=== PATIENT | female | born 1970 | race Asian ===

== ENCOUNTER → 2017-05-29 | Outpatient (CLI) | payer MEDICARE, BC ==
[~2017-05-29] VITALS: Ht 160 cm; Wt 49.9 kg
[~2017-05-29] MED LIST: AMLO10TA2 PO; CALC300T5 PO; CALC667C PO; CALC667C6 PO; CINA30TA2 PO; CINA90TA PO; CLON0.3T PO; CONTRAST GIVEN MC PRN; FURO80TA72 PO; HEPARIN for IV BOLUS 10,000 UNIT/10 ML VIAL. IV ONE; HEPARIN for IV BOLUS 10,000 UNIT/10 ML VIAL. ONE; HYDR-971 PO; IODIXANOL 320 MG/ML 100 ML VIAL. IART ONE; IODIXANOL 320 MG/ML 100 ML VIAL. ONE; LIDOCAINE 1% / SOD BICARB 8.4% 20 ML VIAL. IJ ONE; LIDOCAINE 1%/EPI 1:100,000 20 ML VIAL. ONE; LISI40TA PO; METO50TA6 PO; MIDAZOLAM HCL/PF 2 MG/2 ML VIAL. IV ONE; MIDAZOLAM HCL/PF 2 MG/2 ML VIAL. ONE; SEVE800T9 PO; VIT1TABL57 PO; fentaNYL PF VIAL 100 MCG/2 ML VIAL IV ONE; fentaNYL PF VIAL 100 MCG/2 ML VIAL ONE
[2017-05-29 09:01] LABS: BASO # 0.1 x10^3/uL (0.0-0.2); BASO % 2 % (0-3); EOS % 4 % (0-3); HEMATOCRIT 32.6 % (36.0-47.0); HEMOGLOBIN 10.8 g/dL (12.0-15.5); LYMPH # 0.7 x10^3/uL (1.0-4.8); LYMPH % 22 % (24-48); MEAN CORPUSCULAR HEMOGLOBIN 31 pg (25-35); MEAN CORPUSCULAR HGB CONC 33 g/dL (31-37); MEAN CORPUSCULAR VOLUME 95 fL (79-100); MONO % 10 % (0-9); NEUT % 62 % (31-73); PLATELET COUNT 179 x10^3/uL (140-400); RED BLOOD COUNT 3.42 x10^6/uL (3.50-5.40); RED CELL DISTRIBUTION WIDTH 13.7 % (11.5-14.5); WHITE BLOOD COUNT 2.9 x10^3/uL (4.0-11.0)
[2017-05-29 09:02] LABS: CALCIUM 10.1 mg/dL (8.5-10.1); GFR 3.4; POTASSIUM 3.4 mmol/L (3.5-5.1)
[2017-05-29 09:03] VITALS: BP 110/72
[2017-05-29 09:10] LABS: INR 1.1 (0.8-1.1); PROTHROMBIN TIME PATIENT 13.2 SEC (11.7-14.0)
[2017-05-29 11:05] VITALS: BP 96/65
[2017-05-29 11:17] VITALS: BP 114/75
[2017-05-29 11:33] VITALS: BP 103/72
[2017-05-29 11:48] VITALS: BP 106/69
--- NOTE | 2017-05-30 09:18 | RAD ---
Left upper extremity fistulogram 05/29/2017 Indication: Prolonged bleeding Discussion: The risks and benefits of the procedure were discussed the patient. Informed consent was obtained. The left upper extremity was prepped and draped using maximum sterile barrier technique. A Timeout procedure was performed. 1% lidocaine without epinephrine was administered for local anesthesia. Micropuncture technique was used to access the left upper extremity fistula dyspnea on the arterial anastomosis. Fistulogram was were obtained demonstrating a patent arterial anastomosis and patent proximal fistula. Recurrent significant in-stent stenosis is noted throughout the stent in the distal left cephalic vein. This is treated with a 10 mm high pressure balloon which significantly improved morphology and flow.. Recurrent significant stenosis at the junction of the SVC and right atrium was seen.. This was treated with balloon dilatation using a 14 mm balloon which improved morphology and flow through the lesion. Access sheath was removed over a pursestring suture and hemostasis was achieved. No immediate complications. Fluoroscopy time:: 13.9 min Dose area product: 326 Gycm2 The procedures performed under conscious sedation including continuous cardiopulmonary monitoring via dedicated sedation nurse. Sedation time 45 minutes Impression: Recurrent in-stent stenosis involving the proximal cephalic vein stent, and recurrent stenosis at the junction of the SVC and right atrium, both successfully treated with balloon angioplasty
== END | disposition home or self-care (01) ==
LOC: INTRAD 08:32
PROVIDERS: ATTEND Internal Medicine Nephrology
DX: T82.858A Stenosis of other vascular prosthetic devices, implants and grafts, initial encounter (principal); I72.8 Aneurysm of other specified arteries; I12.9 Hypertensive chronic kidney disease with stage 1 through stage 4 chronic kidney disease, or unspecified chronic kidney disease; N18.6 End stage renal disease; F32.9 Major depressive disorder, single episode, unspecified; Z99.2 Dependence on renal dialysis
CPT/HCPCS: 36415; 36902; 36907; 76937; 80048; 85025; 85610; A4215; C1713; C1758; C1769; C1892; C1894; J1644; J2250; J3010; 99152; 99153

== ENCOUNTER 2020-02-04 17:24 | Inpatient (IN) | payer MEDICARE, BC ==
[~2020-02-04] VITALS: Ht 157.5 cm; Wt 45.9 kg
[~2020-02-04 17:24] MED LIST changes: -AMLO10TA2 PO; +AMLO10TA8 PO; -CONTRAST GIVEN MC PRN; -HEPARIN for IV BOLUS 10,000 UNIT/10 ML VIAL. IV ONE; -HEPARIN for IV BOLUS 10,000 UNIT/10 ML VIAL. ONE; +HYDR-3164 PO; -HYDR-971 PO; -IODIXANOL 320 MG/ML 100 ML VIAL. IART ONE; -IODIXANOL 320 MG/ML 100 ML VIAL. ONE; -LIDOCAINE 1% / SOD BICARB 8.4% 20 ML VIAL. IJ ONE; -LIDOCAINE 1%/EPI 1:100,000 20 ML VIAL. ONE; +LISI-130 PO; -LISI40TA PO; -MIDAZOLAM HCL/PF 2 MG/2 ML VIAL. IV ONE; -MIDAZOLAM HCL/PF 2 MG/2 ML VIAL. ONE; -fentaNYL PF VIAL 100 MCG/2 ML VIAL IV ONE; -fentaNYL PF VIAL 100 MCG/2 ML VIAL ONE
[2020-02-04 17:48] LABS: BASO # 0.1 x10^3/uL (0.0-0.2); BASO % 1 % (0-3); EOS % 0 % (0-3); LYMPH # 0.8 x10^3/uL (1.0-4.8); LYMPH % 10 % (24-48); MEAN CORPUSCULAR HEMOGLOBIN 34 pg (25-35); MEAN CORPUSCULAR HGB CONC 34 g/dL (31-37); MEAN CORPUSCULAR VOLUME 100 fL (79-100); MONO # 0.4 x10^3/uL (0.0-1.1); MONO % 4 % (0-9); NEUT # 7.5 x10^3/uL (1.8-7.7); NEUT % 85 % (31-73); PLATELET COUNT 186 x10^3/uL (140-400); RED BLOOD COUNT 1.21 x10^6/uL (3.50-5.40); WHITE BLOOD COUNT 8.8 x10^3/uL (4.0-11.0)
[2020-02-04 17:54] LABS: HEMOGLOBIN 4.1 g/dL (12.0-15.5)
[2020-02-04 17:55] LABS: CALCIUM 8.2 mg/dL (8.5-10.1); CREATININE 11.4 mg/dL (0.6-1.0); GFR 3.6; POTASSIUM 4.6 mmol/L (3.5-5.1)
[2020-02-04 17:58] LABS: PROTHROMBIN TIME PATIENT 13.9 SEC (11.7-14.0)
[2020-02-04 18:03] LABS: ALBUMIN 2.8 g/dL (3.4-5.0); ALBUMIN/GLOBULIN RATIO 1.1 (1.0-1.7); TOTAL BILIRUBIN 0.3 mg/dL (0.2-1.0); TOTAL PROTEIN 5.4 g/dL (6.4-8.2)
[2020-02-04 18:09] LABS: PREG TEST PT QUAL NEGATIVE (NEG)
--- NOTE | 2020-02-04 18:20 | PHYS DOC ---
Past Medical History Past Medical History: Hypertension, Renal Failure Past Surgical History: Cholecystectomy Additional Past Surgical Histo: LUMBAR SURGERY Smoking Status: Never Smoker Alcohol Use: None Drug Use: None General Adult EDM: Chief Complaint: VAGINAL BLEEDING HPI: HPI: Patient is a 49-year-old female with past medical history of end-stage renal disease who presents to the emergency room with syncope and vaginal bleeding. Her states that she has been having vaginal bleeding for the last 8 days. He states it is been very heavy. She has been going through 20 pads a day. They have had something similar for years ago but it resolved on its own and she did not has much bleeding. He states that she has been listless all day and had a syncopal episode. She has been very weak and is unable to stand on her own. She did go to dialysis yesterday. She is unable to provide any history. Review of Systems: Review of Systems: Unable to obtain due to altered mental status Heart Score: Risk Factors: Risk Factors: DM, Current or recent (<one month) smoker, HTN, HLP, family history of CAD, obesity. Risk Scores: Score 0 - 3: 2.5% MACE over next 6 weeks - Discharge Home Score 4 - 6: 20.3% MACE over next 6 weeks - Admit for Clinical Observation Score 7 - 10: 72.7% MACE over next 6 weeks - Early Invasive Strategies Allergies: Allergies: Allergies Coded Allergies Type Severity Reaction Last Updated Verified aspirin Allergy Intermediate 11/14/15 Yes Physical Exam: PE: General: Lethargic, pale, toxic appearing HEENT: Atraumatic, EOMI, PERRL, airway patent, moist oral mucosa, pale mucosa Neck: Supple, trachea midline Respiratory: CTA bilaterally, normal effort, no wheezing/crackles CV: Tachycardic, no murmur, cap refill <2 GI: Soft, nondistended, nontender, no masses MSK: No obvious deformities Skin: Warm, dry, intact Neuro: withdrawals from pain, nonverbal Current Patient Data: Labs: Laboratory Tests Test 02/04/20 17:38 White Blood Count 8.8 x10^3/uL (4.0-11.0) Red Blood Count 1.21 x10^6/uL (3.50-5.40) L Hemoglobin 4.1 g/dL (12.0-15.5) *L Hematocrit 12.0 % (36.0-47.0) *L Mean Corpuscular Volume 100 fL (79-100) Mean Corpuscular Hemoglobin 34 pg (25-35) Mean Corpuscular Hemoglobin Concent 34 g/dL (31-37) Red Cell Distribution Width 14.0 % (11.5-14.5) Platelet Count 186 x10^3/uL (140-400) Neutrophils (%) (Auto) 85 % (31-73) H Lymphocytes (%) (Auto) 10 % (24-48) L Monocytes (%) (Auto) 4 % (0-9) Eosinophils (%) (Auto) 0 % (0-3) Basophils (%) (Auto) 1 % (0-3) Neutrophils # (Auto) 7.5 x10^3/uL (1.8-7.7) Lymphocytes # (Auto) 0.8 x10^3/uL (1.0-4.8) L Monocytes # (Auto) 0.4 x10^3/uL (0.0-1.1) Eosinophils # (Auto) 0.0 x10^3/uL (0.0-0.7) Basophils # (Auto) 0.1 x10^3/uL (0.0-0.2) Prothrombin Time 13.9 SEC (11.7-14.0) Prothrombin Time INR 1.1 (0.8-1.1) Activated Partial Thromboplast Time 26 SEC (24-38) Fibrinogen 214 mg/dL (200-440) Sodium Level 143 mmol/L (136-145) Potassium Level 4.6 mmol/L (3.5-5.1) Chloride Level 104 mmol/L (98-107) Carbon Dioxide Level 31 mmol/L (21-32) Anion Gap 8 (6-14) Blood Urea Nitrogen 37 mg/dL (7-20) H Creatinine 11.4 mg/dL (0.6-1.0) H Estimated GFR (Cockcroft-Gault) 3.6 BUN/Creatinine Ratio 3 (6-20) L Glucose Level 145 mg/dL (70-99) H Calcium Level 8.2 mg/dL (8.5-10.1) L Total Bilirubin 0.3 mg/dL (0.2-1.0) Aspartate Amino Transferase (AST) 14 U/L (15-37) L Alanine Aminotransferase (ALT) 19 U/L (14-59) Alkaline Phosphatase 47 U/L (46-116) Total Protein 5.4 g/dL (6.4-8.2) L Albumin 2.8 g/dL (3.4-5.0) L Albumin/Globulin Ratio 1.1 (1.0-1.7) Serum Test, Qualitative Negative (NEG) Laboratory Tests 02/04/20 17:38 Laboratory Tests 02/04/20 17:38 Vital Signs: Vital Signs Date Time Temp Pulse Resp B/P (MAP) Pulse Ox O2 Delivery O2 Flow Rate FiO2 02/04/20 17:44 95 02/04/20 17:35 98.6 16 76/50 (59) Room Air 98.6 EKG: EKG: [] Radiology/Procedures: Radiology/Procedures: [] Course & Med Decision Making: Course & Med Decision Making Patient is a 49-year-old female who presents the emergency room with likely hemorrhagic shock. Patient is tachycardic, hypotensive, and has had a large amount of vaginal bleeding. Type and cross was ordered with 2 units of blood. She was started on fluids with improvement in blood pressure. Ultrasound will n eed to be done for vaginal bleeding. Patient was discussed with oncoming physician who will assume care. Anthony Disclaimer: Draggiovanna Disclaimer: This electronic medical record was generated, in whole or in part, using a voice recognition dictation system. Critical Care Time Critical Care: Authorized and Performed by: Leif Padron MD Total critical care time: approximately 40 minutes Due to a high probability of clinically significant, life threatening deterioration, the patient required my highest level of preparedness to intervene emergently and I personally spent this critical care time directly and personally managing the patient. This critical care time included obtaining a history; examining the patient; pulse oximetry; ventilator management if necessary; ordering and review of studies; arranging urgent treatment with development of a management plan; evaluation of patient's response to treatment; frequent reassessment; discussion with patient/family; and, discussions with other providers. This critical care time was performed to assess and manage the high probability of imminent, life-threatening deterioration that could result in multi-organ failure. It was exclusive of separately billable procedures and treating other patients and teaching time. Please see MDM section and the rest of the note for further information on patient assessment and treatment. Departure Departure Impression: Primary Impression: Hemorrhagic shock Additional Impressions: Anemia Vaginal bleeding Disposition: ADMITTED INPATIENT Condition: CRITICAL Referrals: PIERCE SOLIS MD (PCP) Justicifation of Admission Dx: Justifications for Admission: Justification of Admission Dx: Yes LEIF PADRON MD Feb 04, 2020 18:20
--- NOTE | 2020-02-04 19:09 | RAD ---
INDICATION: Reason: severe vaginal bleeding; dizziness; fatigue. / Spl. Instructions: / History: COMPARISON: June 2014 TECHNIQUE: Grayscale and color ultrasound images uterus and adnexa. Transabdominal and transvaginal images obtained. Transvaginal images were needed to better visualize structures that were limited on transabdominal imaging. FINDINGS: Uterus: 61 x 56 x 36 mm. Endometrial Stripe: 12 mm. Left ovary is obscured. Right ovary is 31 x 16 x 14 mm. 15 mm hypoechoic lesion right ovary. Cystic structure near cervical region could be from nabothian cysts. IMPRESSION: * There is some fluid and debris within the endometrial canal. * Small hypoechoic lesion in the right ovary. Some possible causes would include hemorrhagic cyst or endometrioma. Electronically signed by: Efrain Coburn MD (02/04/2020 7:06 PM) [id number]
[2020-02-04 20:10] VITALS: BP 111/55
[2020-02-04] MEDS: ESTROGENS, CONJUGATED 0.625 MG TABLET PO SCH (21:50)
[2020-02-04] MEDS ORDERED: IV NORMAL SALINE 1000ML BAG 1,000 ML IV ONE (22:00)
[2020-02-04] MEDS: METOPROLOL TART IMMED RELEASE 50 MG TABLET. PO SCH (22:00)
[2020-02-04] MEDS ORDERED: MEDR150V3 IM (23:21)
[2020-02-04] MEDS ORDERED: ACET500T68 PO (23:22)
[2020-02-04] MEDS ORDERED: diphenhydrAMINE ORAL ELIXIR 12.5 MG/5 ML ML PO PRN (23:45)
[2020-02-04] MEDS ORDERED: ACETAMINOPHEN 325 MG TABLET. PO PRN (23:45)
[2020-02-04] MEDS ORDERED: diphenhydrAMINE HCL 25 MG CAPSULE PO PRN (23:45)
[2020-02-04 23:56] VITALS: BP 88/57
[2020-02-05] VITALS (29 sets, daily range): BP systolic 65–117; BP diastolic 45–67
[2020-02-05] MEDS ORDERED: medroxyPROGESTERone IM 150 MG/ML VIAL. IM ONE
--- NOTE | 2020-02-05 01:56 | NUR ---
Upon arrival to floor it was found that patient's bedding was saturated with blood and slightly febrile and hypotensive. This RN notified OBGYN of findings. Patient swabbed for rapid COVID and also COVID to be sent out. RN administers depo-provera IM and additional unit of blood started, OBGYN also orders an additional unit of blood which was ordered by RN, totalling 3 units of blood. Orders received from primary physician to transfer patient to ICU, for closer monitoring. Patient remained hypotensive throughout short admission on unit. This RN notifies caregiver of patient transfer as well.
--- NOTE | 2020-02-05 02:19 | NUR ---
Patient transferred to room 108 via bed accompanied by CVC RN and WATER VALVE MECHANIC at 0120. Patient not very interactive and does not speak cameroonian, but patient is very cooperative. Patient attached to ICU monitors--SR/ST on monitor, BP low in 70s, and doing fine on RA. Patient has patent IVs x2 but is SL at this time. Lab to notify shortly when blood is ready to be picked up. Patient able to turn herself in bed and is not in any pain/distress at this time. Patient's brief removed upon transfer and is saturated with blood--CVC RN stated that the brief had been on the patient for between an hour and an hour and a half. RN received unit of blood from lab and started on patient. BP has gone up since starting the unit of blood--temperatures staying steady at 98.5-98.6. Will continue to monitor, call for orders if necessary, and recheck hgb post transfusion.
[2020-02-05] MEDS: IV NORMAL SALINE 1000ML BAG 1,000 ML IV SCH ×2 (03:22→11:15)
--- NOTE | 2020-02-05 03:26 | NUR ---
Reassessments of IVF not completed because patient still receiving fluids and stop times will be documented in IV spreadsheet.
[2020-02-05] MEDS ORDERED: IV NORMAL SALINE 1000ML BAG 1,000 ML IV ONE (03:30)
--- NOTE | 2020-02-05 05:48 | NUR ---
Since patient had been on unit, she had barely bled at all. After checking again at 0540 the pad underneath her was saturated and there were 2 clots present, each about the size of a baseball. Patient cleaned up, states she is not in pain. BP has improved at this time, fourth unit of blood just finished, and repeat hgb to be checked shortly.
[2020-02-05 07:33] LABS: BASO % 1 % (0-3); EOS # 0.1 x10^3/uL (0.0-0.7); EOS % 1 % (0-3); HEMATOCRIT 21.3 % (36.0-47.0); HEMOGLOBIN 7.3 g/dL (12.0-15.5); LYMPH # 0.9 x10^3/uL (1.0-4.8); LYMPH % 18 % (24-48); MEAN CORPUSCULAR HEMOGLOBIN 32 pg (25-35); MEAN CORPUSCULAR HGB CONC 35 g/dL (31-37); MONO # 0.4 x10^3/uL (0.0-1.1); MONO % 9 % (0-9); NEUT # 3.6 x10^3/uL (1.8-7.7); NEUT % 71 % (31-73); PLATELET COUNT 98 x10^3/uL (140-400); RED BLOOD COUNT 2.31 x10^6/uL (3.50-5.40); RED CELL DISTRIBUTION WIDTH 15.1 % (11.5-14.5); WHITE BLOOD COUNT 5.1 x10^3/uL (4.0-11.0)
[2020-02-05 07:38] LABS: MEAN CORPUSCULAR VOLUME 92 fL (79-100)
[2020-02-05] MEDS: CALCIUM ACETATE 667 MG CAPSULE PO SCH ×3 (08:00→17:00)
[2020-02-05] MEDS: METOPROLOL TART IMMED RELEASE 50 MG TABLET. PO SCH ×2 (08:02→21:00)
[2020-02-05] MEDS: FOLIC/VIT B COMP W-C (RENAL) TABLET. PO SCH (08:32)
[2020-02-05] MEDS: ESTROGENS, CONJUGATED 0.625 MG TABLET PO SCH (08:32)
[2020-02-05] MEDS: CINACALCET HCL 30 MG TABLET PO SCH (08:32)
--- NOTE | 2020-02-05 08:41 | CONS ---
DATE OF CONSULTATION: CHIEF COMPLAINT AND HISTORY OF PRESENT ILLNESS: The patient is a 49 years old lady who is a 3, para 3, came into the Emergency Room because of excessive vaginal bleeding. She is admitted through the ER because of her hemoglobin was 4 and bleeding heavy vaginal. She is a patient of Dr. Centeno and seen in consultation, mainly because of the vaginal bleeding. She has had 3 normal deliveries according to the and she has had previous lumbar surgery. Also, cholecystectomy and is on dialysis for kidney failure. ALLERGIES: SHE IS ALLERGIC TO ASPIRIN. PHYSICAL EXAMINATION: VITAL SIGNS: Vital signs at this time seems to be normal. The initial rapid COVID-19 test is negative at this time. ABDOMEN: Feels soft. The patient has lost weight, emaciated, fatigued and weakness and having lot of vaginal bleeding. PELVIC: Reveals external genitalia is normal. Moderate vaginal bleeding noted at this time. On bimanual exam, cervical os is closed. Uterus feels normal size, no adnexal masses are felt at this time. EXTREMITIES: No edema of feet. IMPRESSION Persistent uterine bleeding, secondary anemia, history of kidney failure and getting dialysis frequently. RECOMMENDATION: Since her hemoglobin is 4, she needs at least 3 units of packed cells to bring up her hemoglobin, which she has received and this morning, her hemoglobin is 7.1. We would recommend diagnostic D and C, waiting for medical fitness for the surgery. Thank you for giving me the opportunity to participate in the care and management of this patient. RADHA MCKEON MD DR: SOCRATES/minda JOB#: [id number] / [id number]
[2020-02-05 09:00] LABS: CALCIUM 7.1 mg/dL (8.5-10.1); CREATININE 10.9 mg/dL (0.6-1.0); GFR 3.8; POTASSIUM 4.6 mmol/L (3.5-5.1)
[2020-02-05] MEDS ORDERED: LIDOCAINE 2% PF 5 ML VIAL. ONE (11:59)
[2020-02-05] MEDS ORDERED: PROPOFOL 10 MG/ML (20ML) VIAL. IV ONE (11:59)
[2020-02-05] MEDS ORDERED: fentaNYL PF VIAL 100 MCG/2 ML VIAL ONE (11:59)
[2020-02-05] MEDS ORDERED: PHENYLEPHRINE 10 MG/ML VIAL. ONE (12:00)
[2020-02-05] MEDS ORDERED: OXYTOCIN 10 UNIT/ML VIAL. ONE (12:08)
[2020-02-05] MEDS ORDERED: CARBOPROST TROMETHAMINE 250 MCG/ML AMPUL IM ONE (12:09)
[2020-02-05] MEDS ORDERED: METHYLERGONOVINE MALEATE 0.2 MG/ML VIAL. IM ONE (12:09)
[2020-02-05] MEDS ORDERED: miSOPROStol 200 MCG TABLET ONE (12:16)
--- NOTE | 2020-02-05 12:19 | PDOC1 ---
History and Physical Date of Service: DOS: DATE: 02/05/20 TIME: 12:16 Chief Complaint: Problems: (1) Dysmenorrhea (2) Menorrhalgia (3) Hemorrhagic shock (4) Anemia (5) Vaginal bleeding (6) Anemia, posthemorrhagic, acute (7) Hypotension Chief Complain: Excessive vaginal bleeding History of Present Illness: HPI: This is a pleasant middle-aged female who presented to the ER last night with excessive vaginal bleeding Her hemoglobin had dropped down to 4 She was admitted and transfused several units of packed red blood cells Her hemoglobin today is up to 7.3 She is now being examined in the ICU where she is awaiting to go to surgery to have a DNC Past Medical/Surgical History: PMH/PSH: Past Medical History: ESRD on dialysis hypertension, Renal Failure Past Surgical History: Cholecystectomy Additional Past Surgical Histo: LUMBAR SURGERY Allergies: Allergies: Coded Allergies: aspirin (Verified Allergy, Intermediate, 11/14/15) Family History: Family History: Hypertension Social History: Social History: She does not drink smoke or take drugs Current Medications: Current Medications Current Medications Calcium Acetate (Phoslo) 2,001 mg TIDWMEALS PO ; Start 02/05/20 at 08:00 Cinacalcet (Sensipar) 60 mg DAILY PO ; Start 02/05/20 at 09:00 Metoprolol Tartrate (Lopressor) 50 mg BID PO ; Start 02/04/20 at 22:00 Vitamin B Complex/ Vitamin C (Cris-Keisha) 1 tab DAILY PO ; Start 02/05/20 at 09:00 Estrogens Conjugated (Premarin) 0.625 mg DAILY PO Last administered on 02/04/20at 21:50; Start 02/04/20 at 22:00 Sodium Chloride 1,000 ml @ 100 mls/hr 1X ONCE IV ; Start 02/04/20 at 22:00; Stop 02/05/20 at 07:59; Status DC Medroxyprogesterone Acetate (Depo-Provera Im) 150 mg 1X ONCE IM Last administered on 02/05/20at 00:00; Start 02/05/20 at 00:00; Stop 02/05/20 at 00:01; Status DC Acetaminophen (Tylenol) 650 mg 1X PRN PRN PO PRE-TRANSFUSION; Start 02/04/20 at 23:45 Diphenhydramine HCl (Benadryl Oral Elixir) 12.5 mg 1X PRN PRN PO PRE- TRANSFUSION; Start 02/04/20 at 23:45 Diphenhydramine HCl (Benadryl) 25 mg PRN 1X PRN PO PRE-TRANSFUSION; Start 02/04/20 at 23:45 Sodium Chloride 1,000 ml @ 125 mls/hr Q8H IV Last administered on 02/05/20at 11:15; Start 02/05/20 at 03:15 Sodium Chloride 1,000 ml @ 1,000 mls/hr 1X ONCE IV Last administered on 02/05/20at 03:21; Start 02/05/20 at 03:30; Stop 02/05/20 at 04:29; Status DC Propofol (Diprivan) 200 mg STK-MED ONCE IV ; Start 02/05/20 at 11:59; Stop 02/05/20 at 12:00; Status DC Lidocaine HCl (Lidocaine Pf 2% Vial) 5 ml STK-MED ONCE .ROUTE ; Start 02/05/20 at 11:59; Stop 02/05/20 at 12:00; Status DC Fentanyl Citrate (Fentanyl 2ml Vial) 100 mcg STK-MED ONCE .ROUTE ; Start 02/05/20 at 11:59; Stop 02/05/20 at 12:00; Status DC Phenylephrine HCl (Hernando-Synephrine Inj) 10 mg STK-MED ONCE .ROUTE ; Start 02/05/20 at 12:00; Stop 02/05/20 at 12:00; Status DC Oxytocin (Pitocin) 10 unit STK-MED ONCE .ROUTE ; Start 02/05/20 at 12:08; Stop 02/05/20 at 12:09; Status DC Carboprost Tromethamine (Hemabate) 250 mcg STK-MED ONCE IM ; Start 02/05/20 at 12:09; Stop 02/05/20 at 12:09; Status DC Methylergonovine Maleate (Methergine) 0.2 mg STK-MED ONCE IM ; Start 02/05/20 at 12:09; Stop 02/05/20 at 12:09; Status DC Active Scripts Active Reported Acetaminophen 500 Mg Tablet 1 Tab PO PRN Q6HRS PRN 15 Days Medroxyprogesterone Acetate 150 Mg/1 Ml Vial 1 Ml IM 1X [place] 5-325 Tablet (Acetaminophen/Hydrocodone Bitart) 1 Each Tablet 1-2 Tab PO Q6-8HRS PRN LAST DOSE GIVEN: DATE: TIME: NEXT DOSE DUE: DATE: TIME: Phoslo (Calcium Acetate) 667 Mg Capsule 2,101 Mg PO TIDWMEALS Sensipar (Cinacalcet Hcl) 30 Mg Tablet 60 Mg PO DAILY Nephro-Keisha Rx Tablet (Vit B Cmplx 3/Fa/Vit C/Biotin) 1 Each Tablet 1 Each PO DAILY Metoprolol Tartrate 50 Mg Tablet 50 Mg PO BID Lisinopril 40 Mg Tablet 40 Mg PO BID Lasix (Furosemide) 80 Mg Tablet 80 Mg PO BID ROS: Review of Systems Review of System REVIEW OF SYSTEMS: GENERAL: Denies weakness SKIN: No bruising, hair changes or rashes. EYES: No blurred, double or loss of vision. NOSE AND THROAT: No history of nosebleeds, hoarseness or sore throat. HEART: No history of palpitations, chest pain or shortness of breath on exertion. LUNGS: Denies cough, hemoptysis, wheezing or shortness of breath. GASTROINTESTINAL: Denies changes in appetite, nausea, vomiting, diarrhea or constipation. GENITOURINARY: Complains of excessive vaginal bleeding NEUROLOGIC: Denies history of numbness, tingling, or tremor. PSYCHIATRIC: No history of panic, anxiety or depression. ENDOCRINE: No history of heat or cold intolerance, polyuria or polydipsia. EXTREMITIES: Denies joint pain, pain on walking or stiffness. Physical Exam: Vital Signs: Vital Signs Date Time Temp Pulse Resp B/P (MAP) Pulse Ox O2 Delivery O2 Flow Rate FiO2 02/05/20 11:00 69 16 94/55 (68) 100 Room Air 02/05/20 08:00 98.2 98.2 Physcial Exam: GEN: No apparent distress. Alert and oriented HEENT: Normal cephalic, atraumatic, external auditory canals are patent EYES: Extraocular muscles are intact, pupil are equally round and reactive to light and accommodation MUSCULOSKELETAL: Well developed , well nourished, good range of motion ENDOCRINE: No thyromegaly was palpated LYMPHATICS: No cervical chain or axillary nodes were noted HEMATOPOIETIC: No bruising NECK: Supple, no JVD, no thyromegaly was noted LUNGS: Clear to auscultation in all lung lui without rhonchi or wheezing HEART: RRR, S!, S2 present. Peripheral pulses intact, no obvious murmurs noted ABDOMEN: Soft, nontender. Positive bowel sounds, no organomegaly, normal bowel sounds EXTREMITIES: Without clubbing, cyanosis, or edema. Pedal pulses intact. Negative Homans sign NEUROLOGIC: Normal speech and tone. A&O x 3, moves all extremities, no obvious focal deficits PSYCHIATRIC: Normal affect, normal mood. Stable SKIN: No ulcerations or rashes, good skin turgor, no jaundice VASCULAR: Good capillary refill, neurovascular bundle appears to be intact Labs: Labs: Laboratory Tests Test 02/04/20 17:38 02/05/20 00:05 02/05/20 07:10 White Blood Count 8.8 x10^3/uL (4.0-11.0) 5.1 x10^3/uL (4.0-11.0) Red Blood Count 1.21 x10^6/uL (3.50-5.40) 2.31 x10^6/uL (3.50-5.40) Hemoglobin 4.1 g/dL (12.0-15.5) 7.3 g/dL (12.0-15.5) Hematocrit 12.0 % (36.0-47.0) 21.3 % (36.0-47.0) Mean Corpuscular Volume 100 fL (79-100) 92 fL (79-100) Mean Corpuscular Hemoglobin 34 pg (25-35) 32 pg (25-35) Mean Corpuscular Hemoglobin Concent 34 g/dL (31-37) 35 g/dL (31-37) Red Cell Distribution Width 14.0 % (11.5-14.5) 15.1 % (11.5-14.5) Platelet Count 186 x10^3/uL (140-400) 98 x10^3/uL (140-400) Neutrophils (%) (Auto) 85 % (31-73) 71 % (31-73) Lymphocytes (%) (Auto) 10 % (24-48) 18 % (24-48) Monocytes (%) (Auto) 4 % (0-9) 9 % (0-9) Eosinophils (%) (Auto) 0 % (0-3) 1 % (0-3) Basophils (%) (Auto) 1 % (0-3) 1 % (0-3) Neutrophils # (Auto) 7.5 x10^3/uL (1.8-7.7) 3.6 x10^3/uL (1.8-7.7) Lymphocytes # (Auto) 0.8 x10^3/uL (1.0-4.8) 0.9 x10^3/uL (1.0-4.8) Monocytes # (Auto) 0.4 x10^3/uL (0.0-1.1) 0.4 x10^3/uL (0.0-1.1) Eosinophils # (Auto) 0.0 x10^3/uL (0.0-0.7) 0.1 x10^3/uL (0.0-0.7) Basophils # (Auto) 0.1 x10^3/uL (0.0-0.2) 0.0 x10^3/uL (0.0-0.2) Prothrombin Time 13.9 SEC (11.7-14.0) Prothromb Time International Ratio 1.1 (0.8-1.1) Activated Partial Thromboplast Time 26 SEC (24-38) Fibrinogen 214 mg/dL (200-440) Sodium Level 143 mmol/L (136-145) 144 mmol/L (136-145) Potassium Level 4.6 mmol/L (3.5-5.1) 4.6 mmol/L (3.5-5.1) Chloride Level 104 mmol/L (98-107) 111 mmol/L (98-107) Carbon Dioxide Level 31 mmol/L (21-32) 25 mmol/L (21-32) Anion Gap 8 (6-14) 8 (6-14) Blood Urea Nitrogen 37 mg/dL (7-20) 36 mg/dL (7-20) Creatinine 11.4 mg/dL (0.6-1.0) 10.9 mg/dL (0.6-1.0) Estimated GFR (Cockcroft-Gault) 3.6 3.8 BUN/Creatinine Ratio 3 (6-20) Glucose Level 145 mg/dL (70-99) 100 mg/dL (70-99) Calcium Level 8.2 mg/dL (8.5-10.1) 7.1 mg/dL (8.5-10.1) Total Bilirubin 0.3 mg/dL (0.2-1.0) Aspartate Amino Transf (AST/SGOT) 14 U/L (15-37) Alanine Aminotransferase (ALT/SGPT) 19 U/L (14-59) Alkaline Phosphatase 47 U/L (46-116) Total Protein 5.4 g/dL (6.4-8.2) Albumin 2.8 g/dL (3.4-5.0) Albumin/Globulin Ratio 1.1 (1.0-1.7) Serum Test, Qualitative Negative (NEG) SARS-CoV-2 Antigen (Rapid) Negative (NEGATIVE) Laboratory Tests Test 02/04/20 17:38 02/05/20 00:05 02/05/20 07:10 White Blood Count 8.8 x10^3/uL (4.0-11.0) 5.1 x10^3/uL (4.0-11.0) Red Blood Count 1.21 x10^6/uL (3.50-5.40) 2.31 x10^6/uL (3.50-5.40) Hemoglobin 4.1 g/dL (12.0-15.5) 7.3 g/dL (12.0-15.5) Hematocrit 12.0 % (36.0-47.0) 21.3 % (36.0-47.0) Mean Corpuscular Volume 100 fL (79-100) 92 fL (79-100) Mean Corpuscular Hemoglobin 34 pg (25-35) 32 pg (25-35) Mean Corpuscular Hemoglobin Concent 34 g/dL (31-37) 35 g/dL (31-37) Red Cell Distribution Width 14.0 % (11.5-14.5) 15.1 % (11.5-14.5) Platelet Count 186 x10^3/uL (140-400) 98 x10^3/uL (140-400) Neutrophils (%) (Auto) 85 % (31-73) 71 % (31-73) Lymphocytes (%) (Auto) 10 % (24-48) 18 % (24-48) Monocytes (%) (Auto) 4 % (0-9) 9 % (0-9) Eosinophils (%) (Auto) 0 % (0-3) 1 % (0-3) Basophils (%) (Auto) 1 % (0-3) 1 % (0-3) Neutrophils # (Auto) 7.5 x10^3/uL (1.8-7.7) 3.6 x10^3/uL (1.8-7.7) Lymphocytes # (Auto) 0.8 x10^3/uL (1.0-4.8) 0.9 x10^3/uL (1.0-4.8) Monocytes # (Auto) 0.4 x10^3/uL (0.0-1.1) 0.4 x10^3/uL (0.0-1.1) Eosinophils # (Auto) 0.0 x10^3/uL (0.0-0.7) 0.1 x10^3/uL (0.0-0.7) Basophils # (Auto) 0.1 x10^3/uL (0.0-0.2) 0.0 x10^3/uL (0.0-0.2) Prothrombin Time 13.9 SEC (11.7-14.0) Prothromb Time International Ratio 1.1 (0.8-1.1) Activated Partial Thromboplast Time 26 SEC (24-38) Fibrinogen 214 mg/dL (200-440) Sodium Level 143 mmol/L (136-145) 144 mmol/L (136-145) Potassium Level 4.6 mmol/L (3.5-5.1) 4.6 mmol/L (3.5-5.1) Chloride Level 104 mmol/L (98-107) 111 mmol/L (98-107) Carbon Dioxide Level 31 mmol/L (21-32) 25 mmol/L (21-32) Anion Gap 8 (6-14) 8 (6-14) Blood Urea Nitrogen 37 mg/dL (7-20) 36 mg/dL (7-20) Creatinine 11.4 mg/dL (0.6-1.0) 10.9 mg/dL (0.6-1.0) Estimated GFR (Cockcroft-Gault) 3.6 3.8 BUN/Creatinine Ratio 3 (6-20) Glucose Level 145 mg/dL (70-99) 100 mg/dL (70-99) Calcium Level 8.2 mg/dL (8.5-10.1) 7.1 mg/dL (8.5-10.1) Total Bilirubin 0.3 mg/dL (0.2-1.0) Aspartate Amino Transf (AST/SGOT) 14 U/L (15-37) Alanine Aminotransferase (ALT/SGPT) 19 U/L (14-59) Alkaline Phosphatase 47 U/L (46-116) Total Protein 5.4 g/dL (6.4-8.2) Albumin 2.8 g/dL (3.4-5.0) Albumin/Globulin Ratio 1.1 (1.0-1.7) Serum Test, Qualitative Negative (NEG) SARS-CoV-2 Antigen (Rapid) Negative (NEGATIVE) Assessment/Plan Assessment/Plan Dysmenorrhea with dysfunctional uterine bleeding Plan Trend hemoglobin Transfuse whenever she is below 7 I called [facility] they are going to take her for a DNC ICU monitoring Home meds DVT prophylaxis Full code Justicifation of Admission Dx: Justifications for Admission: Justification of Admission Dx: N/A KELTON GOINS III DO Feb 05, 2020 12:19
[2020-02-05] MEDS ORDERED: IV RINGERS,LACTATED 1000ML 1,000 ML IV SCH (12:24)
[2020-02-05 12:29] LABS: BASO % 1 % (0-3); EOS # 0.1 x10^3/uL (0.0-0.7); EOS % 1 % (0-3); HEMOGLOBIN 7.1 g/dL (12.0-15.5); LYMPH # 1.5 x10^3/uL (1.0-4.8); LYMPH % 24 % (24-48); MEAN CORPUSCULAR HEMOGLOBIN 32 pg (25-35); MEAN CORPUSCULAR HGB CONC 34 g/dL (31-37); MEAN CORPUSCULAR VOLUME 94 fL (79-100); MONO # 0.4 x10^3/uL (0.0-1.1); MONO % 7 % (0-9); NEUT # 4.1 x10^3/uL (1.8-7.7); NEUT % 67 % (31-73); PLATELET COUNT 103 x10^3/uL (140-400); RED BLOOD COUNT 2.22 x10^6/uL (3.50-5.40); RED CELL DISTRIBUTION WIDTH 15.4 % (11.5-14.5); WHITE BLOOD COUNT 6.1 x10^3/uL (4.0-11.0)
[2020-02-05 12:30] LABS: HEMATOCRIT 20.8 % (36.0-47.0)
[2020-02-05] MEDS ORDERED: ONDANSETRON PF 4 MG/2 ML VIAL. IV PRN (12:30)
[2020-02-05] MEDS ORDERED: PROCHLORPERAZINE 10 MG/2 ML VIAL. IV PRN (12:30)
[2020-02-05] MEDS ORDERED: MORPHINE SULFATE 2 MG/ML VIAL. IV PRN (12:30)
[2020-02-05] MEDS ORDERED: fentaNYL PF VIAL 100 MCG/2 ML VIAL IV PRN (12:30)
[2020-02-05] MEDS ORDERED: HYDROmorphone 2 MG/ML VIAL IV PRN (12:30)
[2020-02-05] MEDS ORDERED: ceFAZolin SODIUM IV Push 1 GM VIAL. IVP ONE (12:42)
[2020-02-05] MEDS ORDERED: DEXAMETHASONE SOD PHOS 4 MG/ML VIAL ONE (12:47)
[2020-02-05] MEDS ORDERED: ONDANSETRON PF 4 MG/2 ML VIAL. ONE (12:47)
[2020-02-05] MEDS ORDERED: SEVOFLURANE 31 TO 60 MINUTES. IH ONE (12:51)
--- NOTE | 2020-02-05 13:04 | PDOC ---
GENERAL General: Patient has Persistent vaginal bleeding. Scheduled for Diagnostic D and C. VITAL SIGNS Vital Signs/I&O: Vital Signs Date Time Temp Pulse Resp B/P (MAP) Pulse Ox O2 Delivery O2 Flow Rate FiO2 02/05/20 12:00 98.2 79 18 91/57 (68) 100 Room Air 98.2 I & O 02/04/20 02/04/20 02/05/20 15:00 23:00 07:00 Intake Total 30 ml 2437 ml Balance 30 ml 2437 ml ALLERGIES Allergies: Allergies Coded Allergies Type Severity Reaction Last Updated Verified aspirin Allergy Intermediate 11/14/15 Yes MEDS Medications: Current Medications Medications (Trade) Dose Ordered Sig/Betsy Route PRN Reason Start Time Stop Time Status Last Admin Dose Admin Estrogens Conjugated (Premarin) 0.625 mg DAILY PO 02/04/20 22:00 02/04/20 21:50 Medroxyprogesterone Acetate (Depo-Provera Im) 150 mg 1X ONCE IM 02/05/20 00:00 02/05/20 00:01 DC 02/05/20 00:00 Sodium Chloride 1,000 ml @ 125 mls/hr Q8H IV 02/05/20 03:15 02/05/20 11:15 Sodium Chloride 1,000 ml @ 1,000 mls/hr 1X ONCE IV 02/05/20 03:30 02/05/20 04:29 DC 02/05/20 03:21 LAB Lab: Laboratory Tests Test 02/04/20 17:38 02/05/20 00:05 02/05/20 07:10 02/05/20 12:10 White Blood Count 8.8 x10^3/uL (4.0-11.0) 5.1 x10^3/uL (4.0-11.0) 6.1 x10^3/uL (4.0-11.0) Red Blood Count 1.21 x10^6/uL (3.50-5.40) L 2.31 x10^6/uL (3.50-5.40) L 2.22 x10^6/uL (3.50-5.40) L Hemoglobin 4.1 g/dL (12.0-15.5) *L 7.3 g/dL (12.0-15.5) #L 7.1 g/dL (12.0-15.5) L Hematocrit 12.0 % (36.0-47.0) *L 21.3 % (36.0-47.0) L 20.8 % (36.0-47.0) *L Mean Corpuscular Volume 100 fL (79-100) 92 fL (79-100) # 94 fL (79-100) Mean Corpuscular Hemoglobin 34 pg (25-35) 32 pg (25-35) 32 pg (25-35) Mean Corpuscular Hemoglobin Concent 34 g/dL (31-37) 35 g/dL (31-37) 34 g/dL (31-37) Red Cell Distribution Width 14.0 % (11.5-14.5) 15.1 % (11.5-14.5) H 15.4 % (11.5-14.5) H Platelet Count 186 x10^3/uL (140-400) 98 x10^3/uL (140-400) L 103 x10^3/uL (140-400) L Neutrophils (%) (Auto) 85 % (31-73) H 71 % (31-73) 67 % (31-73) Lymphocytes (%) (Auto) 10 % (24-48) L 18 % (24-48) L 24 % (24-48) Monocytes (%) (Auto) 4 % (0-9) 9 % (0-9) 7 % (0-9) Eosinophils (%) (Auto) 0 % (0-3) 1 % (0-3) 1 % (0-3) Basophils (%) (Auto) 1 % (0-3) 1 % (0-3) 1 % (0-3) Neutrophils # (Auto) 7.5 x10^3/uL (1.8-7.7) 3.6 x10^3/uL (1.8-7.7) 4.1 x10^3/uL (1.8-7.7) Lymphocytes # (Auto) 0.8 x10^3/uL (1.0-4.8) L 0.9 x10^3/uL (1.0-4.8) L 1.5 x10^3/uL (1.0-4.8) Monocytes # (Auto) 0.4 x10^3/uL (0.0-1.1) 0.4 x10^3/uL (0.0-1.1) 0.4 x10^3/uL (0.0-1.1) Eosinophils # (Auto) 0.0 x10^3/uL (0.0-0.7) 0.1 x10^3/uL (0.0-0.7) 0.1 x10^3/uL (0.0-0.7) Basophils # (Auto) 0.1 x10^3/uL (0.0-0.2) 0.0 x10^3/uL (0.0-0.2) 0.0 x10^3/uL (0.0-0.2) Prothrombin Time 13.9 SEC (11.7-14.0) Prothrombin Time INR 1.1 (0.8-1.1) Activated Partial Thromboplast Time 26 SEC (24-38) Fibrinogen 214 mg/dL (200-440) Sodium Level 143 mmol/L (136-145) 144 mmol/L (136-145) Potassium Level 4.6 mmol/L (3.5-5.1) 4.6 mmol/L (3.5-5.1) Chloride Level 104 mmol/L (98-107) 111 mmol/L (98-107) H Carbon Dioxide Level 31 mmol/L (21-32) 25 mmol/L (21-32) Anion Gap 8 (6-14) 8 (6-14) Blood Urea Nitrogen 37 mg/dL (7-20) H 36 mg/dL (7-20) H Creatinine 11.4 mg/dL (0.6-1.0) H 10.9 mg/dL (0.6-1.0) H Estimated GFR (Cockcroft-Gault) 3.6 3.8 BUN/Creatinine Ratio 3 (6-20) L Glucose Level 145 mg/dL (70-99) H 100 mg/dL (70-99) H Calcium Level 8.2 mg/dL (8.5-10.1) L 7.1 mg/dL (8.5-10.1) L Total Bilirubin 0.3 mg/dL (0.2-1.0) Aspartate Amino Transferase (AST) 14 U/L (15-37) L Alanine Aminotransferase (ALT) 19 U/L (14-59) Alkaline Phosphatase 47 U/L (46-116) Total Protein 5.4 g/dL (6.4-8.2) L Albumin 2.8 g/dL (3.4-5.0) L Albumin/Globulin Ratio 1.1 (1.0-1.7) Serum Test, Qualitative Negative (NEG) SARS-CoV-2 Antigen (Rapid) Negative (NEGATIVE) Laboratory Tests 02/04/20 17:38 02/05/20 07:10 02/05/20 12:10 Laboratory Tests 02/04/20 17:38 02/05/20 07:10 ASSESSMENT & PLAN A&P Under GA Wally Grubbs done. EBL 100cc. Hb 7.1. Patient received 1G Ancef during the time of Wally Grubbs. Justicifation of Admission Dx: Justifications for Admission: Justification of Admission Dx: N/A RADHA MCKEON MD Feb 05, 2020 13:04
--- NOTE | 2020-02-05 13:56 | OP ---
DATE OF SURGERY: PREOPERATIVE DIAGNOSIS: Persistent dysfunctional uterine bleeding. POSTOPERATIVE DIAGNOSIS: Persistent dysfunctional uterine bleeding. OPERATION PERFORMED: Diagnostic dilation and curettage. DESCRIPTION OF PROCEDURE: The patient was taken to the operating room under general anesthesia. She was placed in the dorsal lithotomy position. Perineum was prepped and draped in the usual manner. Weighted speculum inserted in the posterior vaginal wall. Anterior lip of the cervix held with a tenaculum. Uterine sound is used to measure the length of the uterine cavity, which appears to be about 8 cm, and the cervix was dilated. First a medium-sized curette was used to curette the endometrial cavity. There were profuse curettings obtained and all this curettings were sent for pathological examination. All the blood clots were removed and she did receive 20 units of Pitocin during the time of the D and C and at the end of the curettage, a large 2-inch vaginal packing is inserted into the vagina just to prevent any bleeding and the patient was sent to the recovery room in good condition. She will go back to ICU for further observation at this time. Her hemoglobin has been 7.1 in OR. The patient tolerated the procedure well. No complications at this time. RADHA MCKEON MD DR: SOCRATES/minda JOB#: [id number] / [id number]
--- NOTE | 2020-02-05 14:29 | NUR ---
Nursing Note Pt returned to ICU bed 108 from OR at this time. PACU nurses recovering pt. Report received from JOSE MANUEL Chi at bedside. Pt does not have any obvious signs of vaginal bleeding at this time. VSS. Pitocin infusing through REJ. Pain medications administered along with heating pad to lower abdominal area. Will continue to monitor.
[2020-02-05] MEDS: fentaNYL PF VIAL 100 MCG/2 ML VIAL IV PRN ×2 (15:10→18:38)
[2020-02-05] MEDS ORDERED: fentaNYL PF VIAL 100 MCG/2 ML VIAL IVP PRN (16:00)
[2020-02-05 16:04] LABS: HEMOGLOBIN 7.4 g/dL (12.0-15.5); RED BLOOD COUNT 2.32 x10^6/uL (3.50-5.40); RED CELL DISTRIBUTION WIDTH 15.2 % (11.5-14.5); WHITE BLOOD COUNT 6.5 x10^3/uL (4.0-11.0)
[2020-02-05] MEDS ORDERED: ALBUMIN HUMAN 5% 250 ML IV ONE (19:00)
--- NOTE | 2020-02-05 19:39 | NUR ---
Report called to 3S RN and transferred to room 333
--- NOTE | 2020-02-05 21:05 | NUR ---
Assumed care patient laying in bed with eyes closed. No acute distress noted at this time. Used language line to communicate. Patient is alert and oriented. Responded and stated she had surgery today and her stomach is in pain. No other complaints voiced. Vital signs and assessment completed. Patient linens changed and shes been repositioned. IJ to the right neck intact and infusing NS@100. Blood pressure medication held per orders. B/P 107/56. 100% on room air. Will medicate patient for pain. Call garcia is in reach and will continue to monitor closely.
--- NOTE | 2020-02-05 21:55 | CONS ---
DATE OF CONSULTATION: REQUESTING PHYSICIAN: Hospitalist. REASON FOR CONSULTATION: End-stage renal disease. HISTORY OF PRESENT ILLNESS: A 49-year-old female with history of hypertension and end-stage renal disease, hemodialysis dependent on Friday, Friday, Friday schedule. The patient is currently admitted with menorrhagia. She has significant vaginal bleeding. Hemoglobin is as low as 4. She has received packed red blood cell transfusion. She now has returned from the operating room where she was taken for D and C. Full D and C was not pursued due to concern for malignant lesion. She has been packed and is back in the Intensive Care Unit. PAST MEDICAL HISTORY: Hypertension, end-stage renal disease, hemodialysis dependent, anemia of chronic kidney disease, secondary hyperparathyroidism, renal disease. PAST SURGICAL HISTORY: Cholecystectomy, lumbar surgery, vascular access placement. ALLERGIES: ASPIRIN. MEDICATIONS: Reviewed per medication list. FAMILY HISTORY: Noncontributory. SOCIAL HISTORY: The patient resides with assistance. REVIEW OF SYSTEMS: The patient is currently somnolent postoperatively and I will provide information. What is known is that she has had significant vaginal bleeding and did miss her most recent dialysis treatment. PHYSICAL EXAMINATION: GENERAL APPEARANCE: The patient is somnolent, still sedated from surgical intervention. HEENT: Oxygen facemask in place. Somewhat sallow complexion. NECK: No increased JVD. LUNGS: Clear. CARDIAC: Without S3 or rub. ABDOMEN: Soft, nontender, no bruits. EXTREMITIES: Without edema. NEUROPSYCHIATRIC: Sedated. LABORATORY DATA: Hemoglobin currently 7.1, hematocrit 20.8, white count 6.1, platelets are 103. Sodium 144, potassium 4.6, chloride 111, CO2 of 25, BUN 36, creatinine 10.9, calcium 7.1. IMPRESSION: 1. End-stage renal disease secondary to hypertensive nephrosclerosis, hemodialysis dependent, on Friday, Friday, and Friday. 2. Menorrhagia -- with operative findings concerning for malignancy. 3. Anemia of chronic kidney disease as well as ____ acute blood loss. RECOMMENDATIONS: 1. Blood products as needed. 2. Hemodynamic monitoring. 3. Ongoing dialysis. We will plan on dialysis on Friday as fluid and electrolyte balance does not necessitate emergent dialysis at this time. Certainly, can alter plans if it becomes necessary. We will follow closely. PIERCE GONZALEZ MD DR: Jose JOB#: [id number] / [id number]
[2020-02-06] VITALS (16 sets, daily range): BP systolic 88–108; BP diastolic 39–66
[2020-02-06] MEDS: IV NORMAL SALINE 1000ML BAG 1,000 ML IV SCH (01:00)
[2020-02-06 08:57] LABS: ALBUMIN 2.8 g/dL (3.4-5.0); ALBUMIN/GLOBULIN RATIO 1.6 (1.0-1.7); CALCIUM 7.9 mg/dL (8.5-10.1); CREATININE 11.4 mg/dL (0.6-1.0); GFR 3.6; TOTAL BILIRUBIN 0.6 mg/dL (0.2-1.0); TOTAL PROTEIN 4.5 g/dL (6.4-8.2)
[2020-02-06] MEDS: METOPROLOL TART IMMED RELEASE 50 MG TABLET. PO SCH ×2 (09:00→21:26)
[2020-02-06] MEDS ORDERED: oxyCODONE/APAP 5/325 1 TAB TABLET PO PRN (09:15)
[2020-02-06] MEDS: CALCIUM ACETATE 667 MG CAPSULE PO SCH ×3 (09:23→17:45)
[2020-02-06] MEDS: ESTROGENS, CONJUGATED 0.625 MG TABLET PO SCH (09:26)
[2020-02-06] MEDS: CINACALCET HCL 30 MG TABLET PO SCH (09:26)
[2020-02-06] MEDS: FOLIC/VIT B COMP W-C (RENAL) TABLET. PO SCH (09:27)
--- NOTE | 2020-02-06 10:14 | PDOC ---
GENERAL General: Patient looks much better Smiling today. No Problems. VITAL SIGNS Vital Signs/I&O: Vital Signs Date Time Temp Pulse Resp B/P (MAP) Pulse Ox O2 Delivery O2 Flow Rate FiO2 02/06/20 09:00 90 83/39 02/06/20 06:30 97.6 16 97 Room Air 97.6 02/05/20 21:30 10.0 I & O 02/05/20 02/05/20 02/06/20 15:00 23:00 07:00 Intake Total 1200 ml Output Total 150 ml 0 ml Balance 1050 ml 0 ml ALLERGIES Allergies: Allergies Coded Allergies Type Severity Reaction Last Updated Verified aspirin Allergy Intermediate 11/14/15 Yes MEDS Medications: Current Medications Medications (Trade) Dose Ordered Sig/Betsy Route PRN Reason Start Time Stop Time Status Last Admin Dose Admin Fentanyl Citrate (Fentanyl 2ml Vial) 50 mcg PRN Q5MIN PRN IV MODERATE TO SEVERE PAIN 02/05/20 12:30 02/05/20 19:38 DC 02/05/20 18:38 Morphine Sulfate (Morphine Sulfate) 1 mg PRN Q10MIN PRN IV SEVERE PAIN 7-10 02/05/20 12:30 02/05/20 19:38 DC 02/05/20 14:28 Fentanyl Citrate (Fentanyl 2ml Vial) 50 mcg PRN Q2HR PRN IVP PAIN 02/05/20 16:00 02/05/20 21:30 Albumin Human 250 ml @ 62.5 mls/hr 1X ONCE IV 02/05/20 19:00 02/05/20 22:59 DC 02/05/20 19:09 LAB Lab: Laboratory Tests Test 02/05/20 12:10 02/05/20 15:40 02/06/20 07:25 White Blood Count 6.1 x10^3/uL (4.0-11.0) 6.5 x10^3/uL (4.0-11.0) Red Blood Count 2.22 x10^6/uL (3.50-5.40) L 2.32 x10^6/uL (3.50-5.40) L Hemoglobin 7.1 g/dL (12.0-15.5) L 7.4 g/dL (12.0-15.5) L Hematocrit 20.8 % (36.0-47.0) *L 22.0 % (36.0-47.0) L Mean Corpuscular Volume 94 fL (79-100) 95 fL (79-100) Mean Corpuscular Hemoglobin 32 pg (25-35) 32 pg (25-35) Mean Corpuscular Hemoglobin Concent 34 g/dL (31-37) 34 g/dL (31-37) Red Cell Distribution Width 15.4 % (11.5-14.5) H 15.2 % (11.5-14.5) H Platelet Count 103 x10^3/uL (140-400) L 105 x10^3/uL (140-400) L Neutrophils (%) (Auto) 67 % (31-73) Lymphocytes (%) (Auto) 24 % (24-48) Monocytes (%) (Auto) 7 % (0-9) Eosinophils (%) (Auto) 1 % (0-3) Basophils (%) (Auto) 1 % (0-3) Neutrophils # (Auto) 4.1 x10^3/uL (1.8-7.7) Lymphocytes # (Auto) 1.5 x10^3/uL (1.0-4.8) Monocytes # (Auto) 0.4 x10^3/uL (0.0-1.1) Eosinophils # (Auto) 0.1 x10^3/uL (0.0-0.7) Basophils # (Auto) 0.0 x10^3/uL (0.0-0.2) Sodium Level 146 mmol/L (136-145) H Potassium Level 5.0 mmol/L (3.5-5.1) Chloride Level 110 mmol/L (98-107) H Carbon Dioxide Level 16 mmol/L (21-32) L Anion Gap 20 (6-14) H Blood Urea Nitrogen 45 mg/dL (7-20) H Creatinine 11.4 mg/dL (0.6-1.0) H Estimated GFR (Cockcroft-Gault) 3.6 BUN/Creatinine Ratio 4 (6-20) L Glucose Level 84 mg/dL (70-99) Calcium Level 7.9 mg/dL (8.5-10.1) L Total Bilirubin 0.6 mg/dL (0.2-1.0) Aspartate Amino Transferase (AST) 14 U/L (15-37) L Alanine Aminotransferase (ALT) 11 U/L (14-59) L Alkaline Phosphatase 36 U/L (46-116) L Total Protein 4.5 g/dL (6.4-8.2) L Albumin 2.8 g/dL (3.4-5.0) L Albumin/Globulin Ratio 1.6 (1.0-1.7) Laboratory Tests 02/05/20 12:10 02/05/20 15:40 Laboratory Tests 02/06/20 07:25 ASSESSMENT & PLAN A&P Vital signs stable. Vaginal Packing Removed. Slight vaginal bleeding noted. Waiting for Pathology report. Patient can go Home. Will see her in office in 2 weeks. Justicifation of Admission Dx: Justifications for Admission: Justification of Admission Dx: N/A RADHA MCKEON MD Feb 06, 2020 10:14
[2020-02-06 10:29] LABS: HEMATOCRIT 18.3 % (36.0-47.0); HEMOGLOBIN 6.1 g/dL (12.0-15.5)
[2020-02-06] MEDS ORDERED: IV NORMAL SALINE 500ML BAG 500 ML IV ONE (12:45)
--- NOTE | 2020-02-06 13:38 | PDOC ---
PROGRESS NOTES Date of Service: DATE: 02/06/20 TIME: 13:36 Chief Complaint Chief Complaint acute blood loss anemia shock from blood loss on admit Dysmenorrhea with dysfunctional uterine bleeding obese, BMI 42 ESRD Hmong, not khmer speaking History of Present Illness History of Present Illness admit was to ICU, out to womens floor today Trend hemoglobin still anemic again, eating well this AM Transfuse whenever she is below 7 REVENUE LIAISON packed and have removed, Dr Pierre to follow, Full code Vitals Vitals Vital Signs Date Time Temp Pulse Resp B/P (MAP) Pulse Ox O2 Delivery O2 Flow Rate FiO2 02/06/20 13:10 98.0 92 18 90/52 98.0 02/06/20 08:00 Room Air 02/06/20 06:30 97 02/05/20 21:30 10.0 Physical Exam Physical Exam calm and responsive, laughed some General: Alert, Cooperative, No acute distress Heart: Regular rate Abdomen: Soft Extremities: No clubbing Skin: No rashes Labs LABS Laboratory Tests Test 02/05/20 15:40 02/06/20 07:25 White Blood Count 6.5 x10^3/uL (4.0-11.0) Red Blood Count 2.32 x10^6/uL (3.50-5.40) Hemoglobin 7.4 g/dL (12.0-15.5) 6.1 g/dL (12.0-15.5) Hematocrit 22.0 % (36.0-47.0) 18.3 % (36.0-47.0) Mean Corpuscular Volume 95 fL (79-100) Mean Corpuscular Hemoglobin 32 pg (25-35) Mean Corpuscular Hemoglobin Concent 34 g/dL (31-37) Red Cell Distribution Width 15.2 % (11.5-14.5) Platelet Count 105 x10^3/uL (140-400) Sodium Level 146 mmol/L (136-145) Potassium Level 5.0 mmol/L (3.5-5.1) Chloride Level 110 mmol/L (98-107) Carbon Dioxide Level 16 mmol/L (21-32) Anion Gap 20 (6-14) Blood Urea Nitrogen 45 mg/dL (7-20) Creatinine 11.4 mg/dL (0.6-1.0) Estimated GFR (Cockcroft-Gault) 3.6 BUN/Creatinine Ratio 4 (6-20) Glucose Level 84 mg/dL (70-99) Calcium Level 7.9 mg/dL (8.5-10.1) Total Bilirubin 0.6 mg/dL (0.2-1.0) Aspartate Amino Transf (AST/SGOT) 14 U/L (15-37) Alanine Aminotransferase (ALT/SGPT) 11 U/L (14-59) Alkaline Phosphatase 36 U/L (46-116) Total Protein 4.5 g/dL (6.4-8.2) Albumin 2.8 g/dL (3.4-5.0) Albumin/Globulin Ratio 1.6 (1.0-1.7) Assessment and Plan Assessmemt and Plan Problems Medical Problems: (1) Anemia Status: Acute (2) Hemorrhagic shock Status: Acute (3) Vaginal bleeding Status: Acute Comment Review of Relevant I have reviewed the following items genoveva (where applicable) has been applied. Labs Laboratory Tests Test 02/04/20 17:38 02/05/20 00:05 02/05/20 07:10 02/05/20 12:10 White Blood Count 8.8 x10^3/uL (4.0-11.0) 5.1 x10^3/uL (4.0-11.0) 6.1 x10^3/uL (4.0-11.0) Red Blood Count 1.21 x10^6/uL (3.50-5.40) 2.31 x10^6/uL (3.50-5.40) 2.22 x10^6/uL (3.50-5.40) Hemoglobin 4.1 g/dL (12.0-15.5) 7.3 g/dL (12.0-15.5) 7.1 g/dL (12.0-15.5) Hematocrit 12.0 % (36.0-47.0) 21.3 % (36.0-47.0) 20.8 % (36.0-47.0) Mean Corpuscular Volume 100 fL (79-100) 92 fL (79-100) 94 fL (79-100) Mean Corpuscular Hemoglobin 34 pg (25-35) 32 pg (25-35) 32 pg (25-35) Mean Corpuscular Hemoglobin Concent 34 g/dL (31-37) 35 g/dL (31-37) 34 g/dL (31-37) Red Cell Distribution Width 14.0 % (11.5-14.5) 15.1 % (11.5-14.5) 15.4 % (11.5-14.5) Platelet Count 186 x10^3/uL (140-400) 98 x10^3/uL (140-400) 103 x10^3/uL (140-400) Neutrophils (%) (Auto) 85 % (31-73) 71 % (31-73) 67 % (31-73) Lymphocytes (%) (Auto) 10 % (24-48) 18 % (24-48) 24 % (24-48) Monocytes (%) (Auto) 4 % (0-9) 9 % (0-9) 7 % (0-9) Eosinophils (%) (Auto) 0 % (0-3) 1 % (0-3) 1 % (0-3) Basophils (%) (Auto) 1 % (0-3) 1 % (0-3) 1 % (0-3) Neutrophils # (Auto) 7.5 x10^3/uL (1.8-7.7) 3.6 x10^3/uL (1.8-7.7) 4.1 x10^3/uL (1.8-7.7) Lymphocytes # (Auto) 0.8 x10^3/uL (1.0-4.8) 0.9 x10^3/uL (1.0-4.8) 1.5 x10^3/uL (1.0-4.8) Monocytes # (Auto) 0.4 x10^3/uL (0.0-1.1) 0.4 x10^3/uL (0.0-1.1) 0.4 x10^3/uL (0.0-1.1) Eosinophils # (Auto) 0.0 x10^3/uL (0.0-0.7) 0.1 x10^3/uL (0.0-0.7) 0.1 x10^3/uL (0.0-0.7) Basophils # (Auto) 0.1 x10^3/uL (0.0-0.2) 0.0 x10^3/uL (0.0-0.2) 0.0 x10^3/uL (0.0-0.2) Prothrombin Time 13.9 SEC (11.7-14.0) Prothromb Time International Ratio 1.1 (0.8-1.1) Activated Partial Thromboplast Time 26 SEC (24-38) Fibrinogen 214 mg/dL (200-440) Sodium Level 143 mmol/L (136-145) 144 mmol/L (136-145) Potassium Level 4.6 mmol/L (3.5-5.1) 4.6 mmol/L (3.5-5.1) Chloride Level 104 mmol/L (98-107) 111 mmol/L (98-107) Carbon Dioxide Level 31 mmol/L (21-32) 25 mmol/L (21-32) Anion Gap 8 (6-14) 8 (6-14) Blood Urea Nitrogen 37 mg/dL (7-20) 36 mg/dL (7-20) Creatinine 11.4 mg/dL (0.6-1.0) 10.9 mg/dL (0.6-1.0) Estimated GFR (Cockcroft-Gault) 3.6 3.8 BUN/Creatinine Ratio 3 (6-20) Glucose Level 145 mg/dL (70-99) 100 mg/dL (70-99) Calcium Level 8.2 mg/dL (8.5-10.1) 7.1 mg/dL (8.5-10.1) Total Bilirubin 0.3 mg/dL (0.2-1.0) Aspartate Amino Transf (AST/SGOT) 14 U/L (15-37) Alanine Aminotransferase (ALT/SGPT) 19 U/L (14-59) Alkaline Phosphatase 47 U/L (46-116) Total Protein 5.4 g/dL (6.4-8.2) Albumin 2.8 g/dL (3.4-5.0) Albumin/Globulin Ratio 1.1 (1.0-1.7) Serum Test, Qualitative Negative (NEG) SARS-CoV-2 Antigen (Rapid) Negative (NEGATIVE) Test 02/05/20 15:40 02/06/20 07:25 White Blood Count 6.5 x10^3/uL (4.0-11.0) Red Blood Count 2.32 x10^6/uL (3.50-5.40) Hemoglobin 7.4 g/dL (12.0-15.5) 6.1 g/dL (12.0-15.5) Hematocrit 22.0 % (36.0-47.0) 18.3 % (36.0-47.0) Mean Corpuscular Volume 95 fL (79-100) Mean Corpuscular Hemoglobin 32 pg (25-35) Mean Corpuscular Hemoglobin Concent 34 g/dL (31-37) Red Cell Distribution Width 15.2 % (11.5-14.5) Platelet Count 105 x10^3/uL (140-400) Sodium Level 146 mmol/L (136-145) Potassium Level 5.0 mmol/L (3.5-5.1) Chloride Level 110 mmol/L (98-107) Carbon Dioxide Level 16 mmol/L (21-32) Anion Gap 20 (6-14) Blood Urea Nitrogen 45 mg/dL (7-20) Creatinine 11.4 mg/dL (0.6-1.0) Estimated GFR (Cockcroft-Gault) 3.6 BUN/Creatinine Ratio 4 (6-20) Glucose Level 84 mg/dL (70-99) Calcium Level 7.9 mg/dL (8.5-10.1) Total Bilirubin 0.6 mg/dL (0.2-1.0) Aspartate Amino Transf (AST/SGOT) 14 U/L (15-37) Alanine Aminotransferase (ALT/SGPT) 11 U/L (14-59) Alkaline Phosphatase 36 U/L (46-116) Total Protein 4.5 g/dL (6.4-8.2) Albumin 2.8 g/dL (3.4-5.0) Albumin/Globulin Ratio 1.6 (1.0-1.7) Laboratory Tests Test 02/05/20 15:40 02/06/20 07:25 White Blood Count 6.5 x10^3/uL (4.0-11.0) Red Blood Count 2.32 x10^6/uL (3.50-5.40) Hemoglobin 7.4 g/dL (12.0-15.5) 6.1 g/dL (12.0-15.5) Hematocrit 22.0 % (36.0-47.0) 18.3 % (36.0-47.0) Mean Corpuscular Volume 95 fL (79-100) Mean Corpuscular Hemoglobin 32 pg (25-35) Mean Corpuscular Hemoglobin Concent 34 g/dL (31-37) Red Cell Distribution Width 15.2 % (11.5-14.5) Platelet Count 105 x10^3/uL (140-400) Sodium Level 146 mmol/L (136-145) Potassium Level 5.0 mmol/L (3.5-5.1) Chloride Level 110 mmol/L (98-107) Carbon Dioxide Level 16 mmol/L (21-32) Anion Gap 20 (6-14) Blood Urea Nitrogen 45 mg/dL (7-20) Creatinine 11.4 mg/dL (0.6-1.0) Estimated GFR (Cockcroft-Gault) 3.6 BUN/Creatinine Ratio 4 (6-20) Glucose Level 84 mg/dL (70-99) Calcium Level 7.9 mg/dL (8.5-10.1) Total Bilirubin 0.6 mg/dL (0.2-1.0) Aspartate Amino Transf (AST/SGOT) 14 U/L (15-37) Alanine Aminotransferase (ALT/SGPT) 11 U/L (14-59) Alkaline Phosphatase 36 U/L (46-116) Total Protein 4.5 g/dL (6.4-8.2) Albumin 2.8 g/dL (3.4-5.0) Albumin/Globulin Ratio 1.6 (1.0-1.7) Medications Current Medications Calcium Acetate (Phoslo) 2,001 mg TIDWMEALS PO Last administered on 02/06/20at 13:23; Start 02/05/20 at 08:00 Cinacalcet (Sensipar) 60 mg DAILY PO Last administered on 02/06/20at 09:26; St art 02/05/20 at 09:00 Metoprolol Tartrate (Lopressor) 50 mg BID PO ; Start 02/04/20 at 22:00 Vitamin B Complex/ Vitamin C (Cris-Keisha) 1 tab DAILY PO Last administered on 02/06/20at 09:27; Start 02/05/20 at 09:00 Estrogens Conjugated (Premarin) 0.625 mg DAILY PO Last administered on 02/06/20at 09:26; Start 02/04/20 at 22:00 Sodium Chloride 1,000 ml @ 100 mls/hr 1X ONCE IV ; Start 02/04/20 at 22:00; Stop 02/05/20 at 07:59; Status DC Medroxyprogesterone Acetate (Depo-Provera Im) 150 mg 1X ONCE IM Last admi nistered on 02/05/20at 00:00; Start 02/05/20 at 00:00; Stop 02/05/20 at 00:01; Status DC Acetaminophen (Tylenol) 650 mg 1X PRN PRN PO PRE-TRANSFUSION; Start 02/04/20 at 23:45 Diphenhydramine HCl (Benadryl Oral Elixir) 12.5 mg 1X PRN PRN PO PRE-TRANSFUSIO N; Start 02/04/20 at 23:45 Diphenhydramine HCl (Benadryl) 25 mg PRN 1X PRN PO PRE-TRANSFUSION; Start 02/04/20 at 23:45 Sodium Chloride 1,000 ml @ 125 mls/hr Q8H IV Last administered on 02/06/20at 01:00; Start 02/05/20 at 03:15; Stop 02/06/20 at 09:04; Status DC Sodium Chloride 1,000 ml @ 1,000 mls/hr 1X ONCE IV Last administered on 02/05/20at 03:21; Start 02/05/20 at 03:30; Stop 02/05/20 at 04:29; Status DC Propofol (Diprivan) 200 mg STK-MED ONCE IV ; Start 02/05/20 at 11:59; Stop 02/05/20 at 12:00; Status DC Lidocaine HCl (Lidocaine Pf 2% Vial) 5 ml STK-MED ONCE .ROUTE ; Start 02/05/20 at 11:59; Stop 02/05/20 at 12:00; Status DC Fentanyl Citrate (Fentanyl 2ml Vial) 100 mcg STK-MED ONCE .ROUTE ; Start 02/05/20 at 11:59; Stop 02/05/20 at 12:00; Status DC Phenylephrine HCl (Hernando-Synephrine Inj) 10 mg STK-MED ONCE .ROUTE ; Start 02/05/20 at 12:00; Stop 02/05/20 at 12:00; Status DC Oxytocin (Pitocin) 10 unit STK-MED ONCE .ROUTE ; Start 02/05/20 at 12:08; Stop 02/05/20 at 12:09; Status DC Carboprost Tromethamine (Hemabate) 250 mcg STK-MED ONCE IM ; Start 02/05/20 at 12:09; Stop 02/05/20 at 12:09; Status DC Methylergonovine Maleate (Methergine) 0.2 mg STK-MED ONCE IM ; Start 02/05/20 at 12:09; Stop 02/05/20 at 12:09; Status DC Misoprostol (Cytotec 200mcg Tab) 200 mcg STK-MED ONCE .ROUTE ; Start 02/05/20 at 12:16; Stop 02/05/20 at 12:16; Status DC Ondansetron HCl (Zofran) 4 mg PRN Q6HRS PRN IV NAUSEA/VOMITING; Start 02/05/20 at 12:30; Stop 02/05/20 at 19:38; Status DC Fentanyl Citrate (Fentanyl 2ml Vial) 25 mcg PRN Q5MIN PRN IV MILD PAIN 1-3; Start 02/05/20 at 12:30; Stop 02/05/20 at 19:38; Status DC Fentanyl Citrate (Fentanyl 2ml Vial) 50 mcg PRN Q5MIN PRN IV MODERATE TO SEVERE PAIN Last administered on 02/05/20at 18:38; Start 02/05/20 at 12:30; Stop 02/05/20 at 19:38; Status DC Morphine Sulfate (Morphine Sulfate) 1 mg PRN Q10MIN PRN IV SEVERE PAIN 7-10 Last administered on 02/05/20at 14:28; Start 02/05/20 at 12:30; Stop 02/05/20 at 19:38; Status DC Ringer's Solution 1,000 ml @ 30 mls/hr Q24H IV ; Start 02/05/20 at 12:24; Stop 02/05/20 at 19:38; Status DC Hydromorphone HCl (Dilaudid) 0.5 mg PRN Q10MIN PRN IV SEV PAIN, Second choice; Start 02/05/20 at 12:30; Stop 02/05/20 at 19:38; Status DC Prochlorperazine Edisylate (Compazine) 5 mg PACU PRN PRN IV NAUSEA, MRX1; Start 02/05/20 at 12:30; Stop 02/05/20 at 19:38; Status DC Cefazolin Sodium (Ancef) 1 gm STK-MED ONCE IVP ; Start 02/05/20 at 12:42; Stop 02/05/20 at 12:42; Status DC Ondansetron HCl (Zofran) 4 mg STK-MED ONCE .ROUTE ; Start 02/05/20 at 12:47; Stop 02/05/20 at 12:48; Status DC Dexamethasone Sodium Phosphate (Decadron) 4 mg STK-MED ONCE .ROUTE ; Start 02/05/20 at 12:47; Stop 02/05/20 at 12:48; Status DC Sevoflurane (Ultane) 30 ml STK-MED ONCE IH ; Start 02/05/20 at 12:51; Stop 02/05/20 at 12:51; Status DC Fentanyl Citrate (Fentanyl 2ml Vial) 50 mcg PRN Q2HR PRN IVP PAIN Last administered on 02/05/20at 21:30; Start 02/05/20 at 16:00 Albumin Human 250 ml @ 62.5 mls/hr 1X ONCE IV Last administered on 02/05/20at 19:09; Start 02/05/20 at 19:00; Stop 02/05/20 at 22:59; Status DC Oxycodone/ Acetaminophen (Percocet 5/325) 1 tab PRN Q4HRS PRN PO PAIN; Start 02/06/20 at 09:15 Sodium Chloride 500 ml @ 500 mls/hr 1X ONCE IV ; Start 02/06/20 at 12:45; Stop 02/06/20 at 13:44 Active Scripts Active Reported Acetaminophen 500 Mg Tablet 1 Tab PO PRN Q6HRS PRN 15 Days Medroxyprogesterone Acetate 150 Mg/1 Ml Vial 1 Ml IM 1X Prewitt 5-325 Tablet (Acetaminophen/Hydrocodone Bitart) 1 Each Tablet 1-2 Tab PO Q6-8HRS PRN LAST DOSE GIVEN: DATE: TIME: NEXT DOSE DUE: DATE: TIME: Phoslo (Calcium Acetate) 667 Mg Capsule 2,101 Mg PO TIDWMEALS Sensipar (Cinacalcet Hcl) 30 Mg Tablet 60 Mg PO DAILY Nephro-Keisha Rx Tablet (Vit B Cmplx 3/Fa/Vit C/Biotin) 1 Each Tablet 1 Each PO DAILY Metoprolol Tartrate 50 Mg Tablet 50 Mg PO BID Lisinopril 40 Mg Tablet 40 Mg PO BID Lasix (Furosemide) 80 Mg Tablet 80 Mg PO BID Vitals/I & O Vital Sign - Last 24 Hours 02/05/20 02/05/20 02/05/20 02/05/20 13:50 13:53 14:28 15:09 Temp 97.3 97.3 Pulse 63 Resp 18 B/P (MAP) 90/50 Pulse Ox 97 100 O2 Delivery Room Air Room Air Room Air Room Air 02/05/20 02/05/20 02/05/20 02/05/20 15:10 16:00 16:01 18:38 Temp 97.3 97.3 Pulse 66 Resp 16 B/P (MAP) 84/49 (61) Pulse Ox 100 100 100 O2 Delivery Room Air Room Air Room Air Room Air 02/05/20 02/05/20 02/05/20 02/05/20 20:38 21:00 21:30 21:39 Temp 98.6 98.6 Pulse 66 67 Resp 18 B/P (MAP) 99/52 (68) 107/56 Pulse Ox 98 98 O2 Delivery Room Air Room Air Room Air O2 Flow Rate 10.0 02/06/20 02/06/20 02/06/20 02/06/20 00:00 01:15 06:30 08:00 Temp 98.9 97.6 98.9 97.6 Pulse 67 67 Resp 16 18 16 B/P (MAP) 100/48 (65) 92/47 (62) Pulse Ox 100 100 97 O2 Delivery Room Air Room Air Room Air Room Air 02/06/20 02/06/20 02/06/20 09:00 12:51 13:10 Temp 99.9 98.0 99.9 98.0 Pulse 90 89 92 Resp 20 18 B/P (MAP) 83/39 96/50 90/52 Intake and Output 02/05/20 02/05/20 02/06/20 15:00 23:00 07:00 Intake Total 1200 ml Output Total 150 ml 0 ml Balance 1050 ml 0 ml Justicifation of Admission Dx: Justifications for Admission: Justification of Admission Dx: N/A KALPANA CHAMPION MD Feb 06, 2020 13:38
[2020-02-07 01:15] VITALS: BP 106/68
[2020-02-07 05:37] LABS: BASO % 1 % (0-3); EOS # 0.1 x10^3/uL (0.0-0.7); EOS % 2 % (0-3); HEMATOCRIT 21.9 % (36.0-47.0); HEMOGLOBIN 7.4 g/dL (12.0-15.5); LYMPH # 0.8 x10^3/uL (1.0-4.8); LYMPH % 14 % (24-48); MEAN CORPUSCULAR HEMOGLOBIN 32 pg (25-35); MEAN CORPUSCULAR HGB CONC 34 g/dL (31-37); MEAN CORPUSCULAR VOLUME 93 fL (79-100); MONO # 0.4 x10^3/uL (0.0-1.1); MONO % 7 % (0-9); NEUT % 76 % (31-73); PLATELET COUNT 83 x10^3/uL (140-400); RED BLOOD COUNT 2.35 x10^6/uL (3.50-5.40); RED CELL DISTRIBUTION WIDTH 15.8 % (11.5-14.5); WHITE BLOOD COUNT 5.3 x10^3/uL (4.0-11.0)
[2020-02-07 05:58] LABS: ALBUMIN 2.3 g/dL (3.4-5.0); ALBUMIN/GLOBULIN RATIO 1.4 (1.0-1.7); CREATININE 12.7 mg/dL (0.6-1.0); GFR 3.2; POTASSIUM 5.1 mmol/L (3.5-5.1); TOTAL BILIRUBIN 0.3 mg/dL (0.2-1.0)
[2020-02-07 06:25] VITALS: BP 93/58
[2020-02-07] MEDS ORDERED: IV NORMAL SALINE 1000ML BAG 1,000 ML IV PRN ×2 (07:46)
[2020-02-07] MEDS ORDERED: DIALYSIS PATIENT. MC PRN (08:00)
[2020-02-07] MEDS: CALCIUM ACETATE 667 MG CAPSULE PO SCH ×3 (08:16→20:27)
[2020-02-07] MEDS: FOLIC/VIT B COMP W-C (RENAL) TABLET. PO SCH (08:21)
[2020-02-07] MEDS: ESTROGENS, CONJUGATED 0.625 MG TABLET PO SCH (08:21)
[2020-02-07] MEDS: CINACALCET HCL 30 MG TABLET PO SCH (08:22)
[2020-02-07] MEDS: METOPROLOL TART IMMED RELEASE 50 MG TABLET. PO SCH ×2 (09:00→20:38)
[2020-02-07 09:22] VITALS: BP 95/63
--- NOTE | 2020-02-07 12:11 | PDOC ---
GENERAL General: Patient still here for Dialysis. VITAL SIGNS Vital Signs/I&O: Vital Signs Date Time Temp Pulse Resp B/P (MAP) Pulse Ox O2 Delivery O2 Flow Rate FiO2 02/07/20 09:22 97.7 66 18 95/63 (74) 100 97.7 02/07/20 06:25 Room Air I & O 02/06/20 02/06/20 02/07/20 15:00 23:00 07:00 Intake Total 780 ml 70 ml 50 ml Balance 780 ml 70 ml 50 ml ALLERGIES Allergies: Allergies Coded Allergies Type Severity Reaction Last Updated Verified aspirin Allergy Intermediate 11/14/15 Yes MEDS Medications: Current Medications Medications (Trade) Dose Ordered Sig/Betsy Route PRN Reason Start Time Stop Time Status Last Admin Dose Admin Vitamin B Complex/ Vitamin C (Cris-Keisha) 1 tab DAILY PO 02/07/20 09:00 02/07/20 08:21 LAB Lab: Laboratory Tests Test 02/07/20 05:00 White Blood Count 5.3 x10^3/uL (4.0-11.0) Red Blood Count 2.35 x10^6/uL (3.50-5.40) L Hemoglobin 7.4 g/dL (12.0-15.5) L Hematocrit 21.9 % (36.0-47.0) L Mean Corpuscular Volume 93 fL (79-100) Mean Corpuscular Hemoglobin 32 pg (25-35) Mean Corpuscular Hemoglobin Concent 34 g/dL (31-37) Red Cell Distribution Width 15.8 % (11.5-14.5) H Platelet Count 83 x10^3/uL (140-400) L Neutrophils (%) (Auto) 76 % (31-73) H Lymphocytes (%) (Auto) 14 % (24-48) L Monocytes (%) (Auto) 7 % (0-9) Eosinophils (%) (Auto) 2 % (0-3) Basophils (%) (Auto) 1 % (0-3) Neutrophils # (Auto) 4.0 x10^3/uL (1.8-7.7) Lymphocytes # (Auto) 0.8 x10^3/uL (1.0-4.8) L Monocytes # (Auto) 0.4 x10^3/uL (0.0-1.1) Eosinophils # (Auto) 0.1 x10^3/uL (0.0-0.7) Basophils # (Auto) 0.0 x10^3/uL (0.0-0.2) Sodium Level 145 mmol/L (136-145) Potassium Level 5.1 mmol/L (3.5-5.1) Chloride Level 112 mmol/L (98-107) H Carbon Dioxide Level 18 mmol/L (21-32) L Anion Gap 15 (6-14) H Blood Urea Nitrogen 54 mg/dL (7-20) H Creatinine 12.7 mg/dL (0.6-1.0) H Estimated GFR (Cockcroft-Gault) 3.2 BUN/Creatinine Ratio 4 (6-20) L Glucose Level 91 mg/dL (70-99) Calcium Level 7.0 mg/dL (8.5-10.1) L Total Bilirubin 0.3 mg/dL (0.2-1.0) Aspartate Amino Transferase (AST) 14 U/L (15-37) L Alanine Aminotransferase (ALT) 8 U/L (14-59) L Alkaline Phosphatase 48 U/L (46-116) Total Protein 4.0 g/dL (6.4-8.2) L Albumin 2.3 g/dL (3.4-5.0) L Albumin/Globulin Ratio 1.4 (1.0-1.7) Laboratory Tests 02/07/20 05:00 Laboratory Tests 02/07/20 05:00 ASSESSMENT & PLAN A&P Patientdoes not have much Vaginal Bleeding. Doing ok. Waiting for Pathology Report. Justicifation of Admission Dx: Justifications for Admission: Justification of Admission Dx: N/A RADHA MCKEON MD Feb 07, 2020 12:11
--- NOTE | 2020-02-07 13:08 | PDOC ---
[facility] [facility] PROGRESS NOTE Date of Service DOS: DATE: 02/07/20 TIME: 13:05 Chief Complaint Chief Complaint Postop day 2 DNC acute blood loss anemia shock from blood loss on admit Dysmenorrhea with dysfunctional uterine bleeding obese, BMI 42 ESRD History of Present Illness History of Present Illness 02/07/2020 Patient seen and examined She seems pleasantly confused but no more vaginal bleeding Discussed with RN Chart reviewed We are still waiting on the pathology report admit was to ICU, out to womens floor today Trend hemoglobin still anemic again, eating well this AM Transfuse whenever she is below 7 [employer] packed and have removed, Dr Pierre to follow, Full code Vitals/I&O Vitals/I&O: Vital Signs Date Time Temp Pulse Resp B/P (MAP) Pulse Ox O2 Delivery O2 Flow Rate FiO2 02/07/20 09:22 97.7 66 18 95/63 (74) 100 97.7 02/07/20 06:25 Room Air I & O 02/06/20 02/06/20 02/07/20 15:00 23:00 07:00 Intake Total 780 ml 70 ml 50 ml Balance 780 ml 70 ml 50 ml Physical Exam General: No acute distress Heart: Regular rate Abdomen: Soft Extremities: No clubbing Skin: No rashes Labs Labs: Laboratory Tests Test 02/07/20 05:00 White Blood Count 5.3 x10^3/uL (4.0-11.0) Red Blood Count 2.35 x10^6/uL (3.50-5.40) Hemoglobin 7.4 g/dL (12.0-15.5) Hematocrit 21.9 % (36.0-47.0) Mean Corpuscular Volume 93 fL (79-100) Mean Corpuscular Hemoglobin 32 pg (25-35) Mean Corpuscular Hemoglobin Concent 34 g/dL (31-37) Red Cell Distribution Width 15.8 % (11.5-14.5) Platelet Count 83 x10^3/uL (140-400) Neutrophils (%) (Auto) 76 % (31-73) Lymphocytes (%) (Auto) 14 % (24-48) Monocytes (%) (Auto) 7 % (0-9) Eosinophils (%) (Auto) 2 % (0-3) Basophils (%) (Auto) 1 % (0-3) Neutrophils # (Auto) 4.0 x10^3/uL (1.8-7.7) Lymphocytes # (Auto) 0.8 x10^3/uL (1.0-4.8) Monocytes # (Auto) 0.4 x10^3/uL (0.0-1.1) Eosinophils # (Auto) 0.1 x10^3/uL (0.0-0.7) Basophils # (Auto) 0.0 x10^3/uL (0.0-0.2) Sodium Level 145 mmol/L (136-145) Potassium Level 5.1 mmol/L (3.5-5.1) Chloride Level 112 mmol/L (98-107) Carbon Dioxide Level 18 mmol/L (21-32) Anion Gap 15 (6-14) Blood Urea Nitrogen 54 mg/dL (7-20) Creatinine 12.7 mg/dL (0.6-1.0) Estimated GFR (Cockcroft-Gault) 3.2 BUN/Creatinine Ratio 4 (6-20) Glucose Level 91 mg/dL (70-99) Calcium Level 7.0 mg/dL (8.5-10.1) Total Bilirubin 0.3 mg/dL (0.2-1.0) Aspartate Amino Transf (AST/SGOT) 14 U/L (15-37) Alanine Aminotransferase (ALT/SGPT) 8 U/L (14-59) Alkaline Phosphatase 48 U/L (46-116) Total Protein 4.0 g/dL (6.4-8.2) Albumin 2.3 g/dL (3.4-5.0) Albumin/Globulin Ratio 1.4 (1.0-1.7) Assessment and Plan Assessmemt and Plan Problems Medical Problems: (1) Anemia Status: Acute (2) Hemorrhagic shock Status: Acute (3) Vaginal bleeding Status: Acute Postop day 2 DNC acute blood loss anemia shock from blood loss on admit Dysmenorrhea with dysfunctional uterine bleeding obese, BMI 42 ESRD Plan Trend hemoglobin Await pathology report Friday dialysis Home meds DVT prophylaxis Full code Prognosis guarded Comment Review of Relevant I have reviewed the following items genoveva (where applicable) has been applied. Medications: Current Medications Medications (Trade) Dose Ordered Sig/Betsy Route PRN Reason Start Time Stop Time Status Last Admin Dose Admin Vitamin B Complex/ Vitamin C (Cris-Keisha) 1 tab DAILY PO 02/07/20 09:00 02/07/20 08:21 Justicifation of Admission Dx: Justifications for Admission: Justification of Admission Dx: N/A KELTON GOINS III DO Feb 07, 2020 13:08
--- NOTE | 2020-02-07 13:20 | PDOC ---
DATE OF SERVICE DATE: 02/07/20 TIME: 13:14 SUBJECTIVE ROS stable OBJECTIVE Vital Signs Vital Signs Date Time Temp Pulse Resp B/P (MAP) Pulse Ox O2 Delivery O2 Flow Rate FiO2 02/07/20 09:22 97.7 66 18 95/63 (74) 100 97.7 02/07/20 06:25 Room Air I & 0 Intake and Output 02/07/20 07:00 Intake Total 900 ml Balance 900 ml Intake Oral 500 ml Blood Product IV Normal Saline Flush 400 ml PHYSICAL EXAM Physical Exam GENERAL APPEARANCE: nad HEENT: OM moist NECK: No increased JVD. LUNGS: Clear. CARDIAC: Without S3 or rub. ABDOMEN: Soft, nontender, no bruits. EXTREMITIES: Without edema. No braun DIAGNOSIS/ASSESSMENT Assessment & Plan ESRD - On HD MWF seen on HD, tolerating well, continue as ordered, Suhas Arthur Hypertension- BP Low Menorrhagia- Per Gynec, Bx Results pending Small hypoechoic lesion in the right ovary. Some possible causes would include hemorrhagic cyst or endometrioma. Anemia- Acute 2/2 above, Hgb 4 at presentation , s/p PRBC Hemoglobin is as low as 4. COMMENT/RELEVANT DATA Meds Current Medications Medications (Trade) Dose Ordered Sig/Betsy Start Time Stop Time Status Last Admin Dose Admin Acetaminophen (Tylenol) 650 mg 1X PRN PRN 02/04/20 23:45 Albumin Human 250 ml @ 62.5 mls/hr 1X ONCE 02/05/20 19:00 02/05/20 22:59 DC 02/05/20 19:09 62.5 MLS/HR Calcium Acetate (Phoslo) 2,001 mg TIDWMEALS 02/05/20 08:00 02/07/20 13:11 2,001 MG Carboprost Tromethamine (Hemabate) 250 mcg STK-MED ONCE 02/05/20 12:09 02/05/20 12:09 DC Cefazolin Sodium (Ancef) 1 gm STK-MED ONCE 02/05/20 12:42 02/05/20 12:42 DC Cinacalcet (Sensipar) 60 mg DAILY 02/05/20 09:00 02/07/20 08:22 60 MG Dexamethasone Sodium Phosphate (Decadron) 4 mg STK-MED ONCE 02/05/20 12:47 8/15/20 12:48 DC Diphenhydramine HCl (Benadryl Oral Elixir) 12.5 mg 1X PRN PRN 02/04/20 23:45 Diphenhydramine HCl (Benadryl) 25 mg PRN 1X PRN 02/04/20 23:45 Estrogens Conjugated (Premarin) 0.625 mg DAILY 02/04/20 22:00 02/07/20 08:21 0.625 MG Fentanyl Citrate (Fentanyl 2ml Vial) 50 mcg PRN Q2HR PRN 02/05/20 16:00 02/05/20 21:30 50 MCG Hydromorphone HCl (Dilaudid) 0.5 mg PRN Q10MIN PRN 02/05/20 12:30 02/05/20 19:38 DC Info (PHARMACY MONITORING -- do not chart) 1 each PRN DAILY PRN 02/07/20 08:00 Lidocaine HCl (Lidocaine Pf 2% Vial) 5 ml STK-MED ONCE 02/05/20 11:59 02/05/20 12:00 DC Medroxyprogesterone Acetate (Depo-Provera Im) 150 mg 1X ONCE 02/05/20 00:00 02/05/20 00:01 DC 02/05/20 00:00 150 MG Methylergonovine Maleate (Methergine) 0.2 mg STK-MED ONCE 02/05/20 12:09 02/05/20 12:09 DC Metoprolol Tartrate (Lopressor) 50 mg BID 02/04/20 22:00 02/06/20 21:26 50 MG Misoprostol (Cytotec 200mcg Tab) 200 mcg STK-MED ONCE 02/05/20 12:16 02/05/20 12:16 DC Morphine Sulfate (Morphine Sulfate) 1 mg PRN Q10MIN PRN 02/05/20 12:30 02/05/20 19:38 DC 02/05/20 14:28 1 MG Ondansetron HCl (Zofran) 4 mg STK-MED ONCE 02/05/20 12:47 02/05/20 12:48 DC Oxycodone/ Acetaminophen (Percocet 5/325) 1 tab PRN Q4HRS PRN 02/06/20 09:15 02/07/20 01:19 1 TAB Oxytocin (Pitocin) 10 unit STK-MED ONCE 02/05/20 12:08 02/05/20 12:09 DC Phenylephrine HCl (Hernando-Synephrine Inj) 10 mg STK-MED ONCE 02/05/20 12:00 02/05/20 12:00 DC Prochlorperazine Edisylate (Compazine) 5 mg PACU PRN PRN 02/05/20 12:30 02/05/20 19:38 DC Propofol (Diprivan) 200 mg STK-MED ONCE 02/05/20 11:59 02/05/20 12:00 DC Ringer's Solution 1,000 ml @ 30 mls/hr Q24H 02/05/20 12:24 02/05/20 19:38 DC Sevoflurane (Ultane) 30 ml STK-MED ONCE 02/05/20 12:51 02/05/20 12:51 DC Sodium Chloride 1,000 ml @ 400 mls/hr Q2H30M PRN 02/07/20 07:46 02/07/20 19:45 Vitamin B Complex/ Vitamin C (Cris-Keisha) 1 tab DAILY 02/07/20 09:00 02/07/20 08:21 1 TAB Lab Laboratory Tests Test 02/07/20 05:00 White Blood Count 5.3 x10^3/uL (4.0-11.0) Red Blood Count 2.35 x10^6/uL (3.50-5.40) Hemoglobin 7.4 g/dL (12.0-15.5) Hematocrit 21.9 % (36.0-47.0) Mean Corpuscular Volume 93 fL (79-100) Mean Corpuscular Hemoglobin 32 pg (25-35) Mean Corpuscular Hemoglobin Concent 34 g/dL (31-37) Red Cell Distribution Width 15.8 % (11.5-14.5) Platelet Count 83 x10^3/uL (140-400) Neutrophils (%) (Auto) 76 % (31-73) Lymphocytes (%) (Auto) 14 % (24-48) Monocytes (%) (Auto) 7 % (0-9) Eosinophils (%) (Auto) 2 % (0-3) Basophils (%) (Auto) 1 % (0-3) Neutrophils # (Auto) 4.0 x10^3/uL (1.8-7.7) Lymphocytes # (Auto) 0.8 x10^3/uL (1.0-4.8) Monocytes # (Auto) 0.4 x10^3/uL (0.0-1.1) Eosinophils # (Auto) 0.1 x10^3/uL (0.0-0.7) Basophils # (Auto) 0.0 x10^3/uL (0.0-0.2) Sodium Level 145 mmol/L (136-145) Potassium Level 5.1 mmol/L (3.5-5.1) Chloride Level 112 mmol/L (98-107) Carbon Dioxide Level 18 mmol/L (21-32) Anion Gap 15 (6-14) Blood Urea Nitrogen 54 mg/dL (7-20) Creatinine 12.7 mg/dL (0.6-1.0) Estimated GFR (Cockcroft-Gault) 3.2 BUN/Creatinine Ratio 4 (6-20) Glucose Level 91 mg/dL (70-99) Calcium Level 7.0 mg/dL (8.5-10.1) Total Bilirubin 0.3 mg/dL (0.2-1.0) Aspartate Amino Transf (AST/SGOT) 14 U/L (15-37) Alanine Aminotransferase (ALT/SGPT) 8 U/L (14-59) Alkaline Phosphatase 48 U/L (46-116) Total Protein 4.0 g/dL (6.4-8.2) Albumin 2.3 g/dL (3.4-5.0) Albumin/Globulin Ratio 1.4 (1.0-1.7) Results All relevant outside records, renal labs, imaging studies, telemetry/EKG's were reviewed. Justicifation of Admission Dx: Justifications for Admission: Justification of Admission Dx: N/A FELIPA BURCH MD Feb 07, 2020 13:20
[2020-02-07 13:33] VITALS: BP 129/82
[2020-02-07 18:17] VITALS: BP 105/85
--- NOTE | 2020-02-07 18:19 | NUR ---
Returned to floor Patient returned to 3rd floor at this time from dialysis. Patients vitals taken, and patient served dinner. Will continue to monitor.
[2020-02-07 20:20] VITALS: BP 117/70
[2020-02-08 01:05] VITALS: BP 124/76
[2020-02-08 04:50] VITALS: BP 113/70
[2020-02-08] MEDS: CALCIUM ACETATE 667 MG CAPSULE PO SCH ×2 (08:00→11:05)
--- NOTE | 2020-02-08 08:00 | NUR ---
Right IJ was found laying on bedside table. Pt had some dried blood on her gown and chest. Gown changed and chest and neck area cleaned with a washcloth.
[2020-02-08 09:00] VITALS: BP 106/64
--- NOTE | 2020-02-08 09:46 | EKG ---
[facility] [address] [place] [address] Test Date: 2020-02-04 Test Time: 17:36:52 Pat Name: RAVIN TOMLIN Department: Room: 333 Gender: F Feed Handler: : 1970 Requested By: LEIF NAZARIO Order Number: [id number] Reading MD: Measurements Intervals [place] Rate: 100 P: 71 SC: 170 QRS: -63 QRSD: 86 T: 61 QT: 370 QTc: 481 Interpretive Statements SINUS RHYTHM ABNORMAL LEFT AXIS DEVIATION R-S TRANSITION ZONE IN V LEADS DISPLACED TO THE RIGHT LEFT ANTERIOR FASCICULAR BLOCK PROLONGED QT ABNORMAL ECG RI6.02 No previous ECG available for comparison
[2020-02-08] MEDS: METOPROLOL TART IMMED RELEASE 50 MG TABLET. PO SCH (11:04)
[2020-02-08] MEDS: CINACALCET HCL 30 MG TABLET PO SCH (11:05)
[2020-02-08] MEDS: ESTROGENS, CONJUGATED 0.625 MG TABLET PO SCH (11:05)
--- NOTE | 2020-02-08 11:15 | PDOC ---
[employer] PROGRESS NOTE Date of Service DOS: DATE: 02/08/20 TIME: 11:09 Chief Complaint Chief Complaint Postop day 3 DNC acute blood loss anemia shock from blood loss on admit Dysmenorrhea with dysfunctional uterine bleeding obese, BMI 42 ESRD History of Present Illness History of Present Illness 02/08/2020 Patient seen and examined Resting with NAD Pleasantly confused when awake Discussed with RN Chart reviewed Spoke with Debora - Dr. Kimble Path results still pending 02/07/2020 Patient seen and examined She seems pleasantly confused but no more vaginal bleeding Discussed with RN Chart reviewed We are still waiting on the pathology report admit was to ICU, out to womens floor today Trend hemoglobin still anemic again, eating well this AM Transfuse whenever she is below [address] JUSTICE packed and have removed, Dr Pierre to follow, Full code Vitals/I&O Vitals/I&O: Vital Signs Date Time Temp Pulse Resp B/P (MAP) Pulse Ox O2 Delivery O2 Flow Rate FiO2 02/08/20 11:04 82 101/66 02/08/20 09:00 98.5 18 100 Room Air 98.5 I & O 02/07/20 02/07/20 02/08/20 15:00 23:00 07:00 Intake Total 50 ml Balance 50 ml Physical Exam General: No acute distress Heart: Regular rate, No murmurs Abdomen: Soft Extremities: No clubbing Skin: No rashes Review of Systems Review of Systems: Denies pain Denies weakness Assessment and Plan Assessmemt and Plan Problems Medical Problems: (1) Anemia Status: Acute (2) Hemorrhagic shock Status: Acute (3) Vaginal bleeding Status: Acute Postop day 3 DNC acute blood loss anemia shock from blood loss on admit Dysmenorrhea with dysfunctional uterine bleeding obese, BMI [address] Aldrich patient is okay to go home so I will put the discharge orders in for now continue the following: Trend hemoglobin Spoke with Dr. Peraza (Path) Awaiting pathology report Friday dialysis Home meds DVT prophylaxis Full code Prognosis guarded Comment Review of Relevant I have reviewed the following items genoveva (where applicable) has been applied. Justicifation of Admission Dx: Justifications for Admission: Justification of Admission Dx: N/A KELTON GOINS III DO Feb 08, 2020 11:14
[2020-02-08 11:30] VITALS: BP 101/66
--- NOTE | 2020-02-08 11:37 | PDOC ---
GENERAL General: Talked with Patients caregiver. Patient doing ok. VITAL SIGNS Vital Signs/I&O: Vital Signs Date Time Temp Pulse Resp B/P (MAP) Pulse Ox O2 Delivery O2 Flow Rate FiO2 02/08/20 11:04 82 101/66 02/08/20 09:00 98.5 18 100 Room Air 98.5 I & O 02/07/20 02/07/20 02/08/20 15:00 23:00 07:00 Intake Total 50 ml Balance 50 ml ALLERGIES Allergies: Allergies Coded Allergies Type Severity Reaction Last Updated Verified aspirin Allergy Intermediate 11/14/15 Yes ASSESSMENT & PLAN A&P Patient has no Vaginal Bleeding. Still waiting for Pathology Report. Justicifation of Admission Dx: Justifications for Admission: Justification of Admission Dx: N/A Nutrition Consultation Dietary Evaluation: Recommendations by RD: Dietary education by RD, Increase Calorie Intake, Protein supplementation Comments: REC renal diet w/nepro supplements per pt preference, will try vanilla at dinner Expected Outcomes/Goals: PO intake to meet >75% est needs Malnutrition Findings: Body Fat Depletion (Non Severe: Mild Depletion RADHA MCKEON MD Feb 08, 2020 11:37
[2020-02-08] MEDS: FOLIC/VIT B COMP W-C (RENAL) TABLET. PO SCH (11:51)
--- NOTE | 2020-02-08 12:30 | NUR ---
Discharge and follow instructions reviewed and given to pt's caregiver and legal dealer compliance representative, Sheba. Sheba instructed that pt is to follow up in [address] Pierre to review pathology report. Sheba verbalized understanding and he signed pt's discharge sheet. Pt taken out of the hospital per W/C and helped into Sheba's car.
--- NOTE | 2020-02-08 18:06 | PATHOLOGY ---
[facility] Accession Number: [id number] . 01 Material submitted: . PART A: vagina - BLOOD CLOTS PART B: endometrium - ENDOMETRIAL CURETTINGS . 01 Clinical history: . ANEMIA, HYPERTENSION, VAGINAL BLEEDING . 02 Diagnosis: A. Vaginal contents: - Blood clot. . B. Endometrial curettings: - ENDOMETRIOID ADENOCARCINOMA, FIGO GRADE 2. SEE COMMENT. (JPM:billie;02/08/2020) [facility] [place] 1558 [facility] . 02 Comment: Sections of the endometrial curettings reveal an endometrioid adenocarcinoma. The tumor is predominantly glandular. There are solid areas with foci of tumor necrosis. There is grade 2 nuclear atypia. The findings are supportive of the diagnosis of an endometrioid adenocarcinoma, FIGO Grade 2. The case is also examined by Dr. Frederick, who has a specialty interest in Career Technical Education Teacher pathology. She concurs with the diagnosis. The results are reported to Dr. Alcazar on 02/08/2020 at 4:00 PM. (JPM:billie; 02/08/2020) . 02 Electronically signed: . Alvaro Kimble MD, Pathologist NPI- [id number] . 01 Gross description: . A. The specimen is received in formalin, labeled "[place] Clar[place], blood clots". Received is a 107 g aggregate of blood coagulum measuring 11.5 x 9.8 x 3.2 cm in aggregate dimensions. Extensive sectioning reveals no grossly identifiable soft tissue. The specimen is submitted representatively in cassette A1. . B. The specimen is received in formalin, labeled "[place] Clar[place], endometrial curettings". Received are multiple segments of pale marx membranous tissue admixed with mucoid material measuring 4.2 x 2.8 x 1.1 cm in aggregate dimensions. The specimen is filtered and entirely submitted in cassette B1 through B4. (CAA; 02/07/2020) QAC/QAC 02/08/2020 1250 Local . 02 Pathologist provided ICD-10: C54.1, D64.9, N93.9 . 02 CPT . 181453, 564604 Specimen Comment: A courtesy copy of this report has been sent to [phone], [phone]- Specimen Comment: [id number], Specimen Comment: Report sent to ,DR CHAMPION / DR SOLIS Performed at: 01 [facility] [address], [place] [id number] MD Jack Rangel MD Phone: [phone] Performed at: 02 [facility] [address], [place] [id number] MD Alvaro Kimble MD Phone: [phone]
--- NOTE | 2020-02-10 12:45 | DS ---
DATE OF DISCHARGE: 02/08/2020 ADMISSION DIAGNOSES: Anemia and vaginal bleeding. DISCHARGE DIAGNOSIS: Endometrial adenocarcinoma. CONSULTS: Dr. Aldrich. PROCEDURE: D and C. HOSPITAL COURSE: The patient is a pleasant 49-year-old female who basically had severe vaginal bleeding. She bled down all way to 4. We admitted her and transfused her up to 7 or 8. She went for a D and C. Post-procedure, she did well and we discharged her to home with close outpatient followup. She is going to follow up with Dr. Aldrich for her official path report and for further recommendations regarding her endometrial adenocarcinoma. TOTAL TIME: 32 minutes. KELTON GOINS DO DR: JJ/minda JOB#: [id number] / [id number]
== END 2020-02-08 12:30 | disposition home or self-care (01) | DRG 744 ==
LOC: ER 17:24 → 2 SOUTH 21:25 → OBSVTOIN 21:30 → 1 WEST ICU 02-05 01:15 → 3 NORTH 02-05 20:28
PROVIDERS: ADMIT Internal Medicine; ATTEND Internal Medicine
PROC: 30233N1 Transfusion of Nonautologous Red Blood Cells into Peripheral Vein, Percutaneous Approach (ICD-10-PCS; 2020-02-04)
PROC: 0UDB7ZX Extraction of Endometrium, Via Natural or Artificial Opening, Diagnostic (ICD-10-PCS; principal; 2020-02-05 11:57)
DX: N93.8 Other specified abnormal uterine and vaginal bleeding (principal); N18.6 End stage renal disease; R57.8 Other shock; D62 Acute posthemorrhagic anemia; N25.81 Secondary hyperparathyroidism of renal origin; Z68.41 Body mass index [BMI] 40.0-44.9, adult; I12.0 Hypertensive chronic kidney disease with stage 5 chronic kidney disease or end stage renal disease; N92.0 Excessive and frequent menstruation with regular cycle; D63.1 Anemia in chronic kidney disease; E66.9 Obesity, unspecified; N94.6 Dysmenorrhea, unspecified; Z82.49 Family history of ischemic heart disease and other diseases of the circulatory system; Z99.2 Dependence on renal dialysis; Z88.8 Allergy status to other drugs, medicaments and biological substances; Z20.828 Contact with and (suspected) exposure to other viral communicable diseases
CPT/HCPCS: 36415; 36430; 76830; 76856; 80048; 80053; 84703; 85014; 85018; 85025; 85027; 85384; 85610; 85730; 86850; 86900; 86901; 86920; 87340; 87426; 88304; 88305; 93005; G0379; J0690; J1050; J1100; J2210; J2270; J2370; J2405; J2590; J2704; J3010; J3490; J7030; P9016; P9041; 99291-25; G0378; U0003-CS

== ENCOUNTER → 2021-01-09 | Outpatient (CLI) | payer MEDICARE, BC ==
[~2021-01-09] VITALS: Ht 160 cm; Wt 51.0 kg
[~2021-01-09] MED LIST changes: +ACET500T68 PO; +AMLO-187 PO; -AMLO10TA8 PO; -CINA30TA2 PO; +CINA30TA24 PO; +GELATIN SPONGE SIZE 12-7MM SPONGE. ONE; +GELATIN SPONGE SIZE 12-7MM SPONGE. TP ONE; +HEPARIN for IV BOLUS 10,000 UNIT/10 ML VIAL. ONE; +IODIXANOL 320 MG/ML 100 ML VIAL. IART ONE; +IODIXANOL 320 MG/ML 100 ML VIAL. ONE; +IODIXANOL 320 MG/ML 50ML VIAL. ONE; +LIDOCAINE WITH 8.4% SOD BICARB 3 ML DISP.SYRIN. IJ ONE; +LIDOCAINE WITH 8.4% SOD BICARB 3 ML DISP.SYRIN. ONE; +MEDR150V3 IM; +MIDAZOLAM HCL/PF 2 MG/2 ML VIAL. IV ONE; +MIDAZOLAM HCL/PF 2 MG/2 ML VIAL. ONE; +fentaNYL PF VIAL 100 MCG/2 ML VIAL IV ONE; +fentaNYL PF VIAL 100 MCG/2 ML VIAL ONE
[2021-01-09 08:41] VITALS: BP 90/61
[2021-01-09 08:49] LABS: BASO % 1 % (0-3); EOS # 0.1 x10^3/uL (0.0-0.7); EOS % 3 % (0-3); HEMATOCRIT 31.3 % (36.0-47.0); HEMOGLOBIN 10.6 g/dL (12.0-15.5); LYMPH # 0.7 x10^3/uL (1.0-4.8); LYMPH % 20 % (24-48); MEAN CORPUSCULAR HEMOGLOBIN 33 pg (25-35); MEAN CORPUSCULAR HGB CONC 34 g/dL (31-37); MEAN CORPUSCULAR VOLUME 98 fL (79-100); MONO # 0.4 x10^3/uL (0.0-1.1); MONO % 12 % (0-9); NEUT # 2.2 x10^3/uL (1.8-7.7); NEUT % 64 % (31-73); PLATELET COUNT 152 x10^3/uL (140-400); RED CELL DISTRIBUTION WIDTH 14.2 % (11.5-14.5); WHITE BLOOD COUNT 3.5 x10^3/uL (4.0-11.0)
[2021-01-09 09:06] LABS: PROTHROMBIN TIME PATIENT 11.6 SEC (11.7-14.0)
--- NOTE | 2021-01-09 11:17 | PDOC ---
IR POST PROC PROGRESS NOTE Director Communications Director Communications Kenna Pink Pre-Procedure Diagnosis Pre-Procedure Diagnosis Elevated venous pressure AVF Post-Procedure Diagnosis Post-Procedure Diagnosis In-stent and central venous stenosis Procedure Performed Procedure Performed FOOD SERVICE MANAGER of in-stent stenosis, FOOD SERVICE MANAGER of central stenosis Type of Anesthesia Anesthesia:Local moderate sedation Estimated Blood Loss Estimated Blood Loss minimal Drains/Tubes Drains/Tubes none Condition of Patient Condition of Patient stable Disposition Disposition DC home when meeting criteria TAMIKO PINK MD Jan 09, 2021 11:17
[2021-01-09 11:33] VITALS: BP 103/71
[2021-01-09 11:40] VITALS: BP 102/71
[2021-01-09 11:55] VITALS: BP 97/69
[2021-01-09 12:10] VITALS: BP 109/71
[2021-01-09 12:25] VITALS: BP 107/72
--- NOTE | 2021-01-09 12:25 | RAD ---
Procedure: Fistulogram, EMERGENCY DISPATCHER of in-stent stenosis, Central venous EMERGENCY DISPATCHER Clinical Indication: High venous pressures of AVF Anesthesia: Local with moderate sedation. Continuous cardiopulmonary monitoring was preformed by inde pendent qualified nursing personnel. Please refer to the medical record for exact doses of medications utilized to achieve moderate sedati on. Conscious sedation was administered for 58 minutes. Contrast: 80 cc of Visipaque Fluoroscopy time: 6.2 minutes Complications: None Consent: The procedure was explained in its entirety to the patient or the patients designated repre sentative by a member of the treatment team, including a discussion of the risks, benefits and common ly accepted alternatives to the procedure, as well as the expected consequences of no therapy whatsoe meghan. Discussion of the risks included, but was not limited to, those that are most frequent and those that are rare but possibly severe or life-threatening, as well as the possibility of unforeseen comp lications. All questions were answered and informed consent was obtained. Sterility: All elements of maximal sterile barrier technique including the use of a cap, mask, steril e gown, sterile gloves, large sterile sheet, appropriate hand hygiene, and 2% chlorhexidine for cutan eous antisepsis (or acceptable alternative antiseptic per current guidelines) were followed for this procedure. Patient was placed in the supine position. The left arm was prepped and draped in appropriate sterile fashion. A timeout was performed. Initial ultrasound of the left arm fistula demonstrated a patent, compressible fissure with areas of aneurysmal dilatation. The arterial anastomosis appeared widely patent. Under direct ultrasound acces s to the fistula was obtained with a micropuncture needle. The needle was exchanged for a 4 [place] co axial dilator. Fistulogram was performed. The access was then upsized to a 7 [place] short sheath over an 035 wire. In conjunction with a Bernst ein catheter, a glide advantage wire was navigated to the inferior vena cava. A 10 mm high-pressure a ngioplasty balloon was placed across the in-stent stenosis of the cephalic arch stent and prolonged a ngioplasty was performed. Repeat fistulogram demonstrated near complete resolution of the stenosis. N ext a 14 [place] high-pressure angioplasty balloon was placed at the central venous stenosis near the junction of the superior vena cava and right atrium. At low-pressure a waist was seen and documented. This was resolved with a prolonged inflation. The balloon was removed and repeat fistulogram through the sheath was performed. Hemostasis was achieved using manual compression. Excellent hemostasis was achieved. Sterile dressing s were applied. Findings: Initial fistulogram demonstrates repeat in-stent stenosis of the short stent at the central cephalic vein. This was resolved after 10 mm angioplasty. A second, central stenosis was also identified at th e central SVC. This was resolved after 14 mm angioplasty. Impression: 1. Initial fistulogram with recurrent in-stent stenosis of the central cephalic vein and stenosis of the central SVC. 2. Successful treatment with balloon angioplasty. Plan: Left arm fistula is ok to use for dialysis. Electronically signed by: Carl Pink (01/09/2021 12:23 PM) [id number]
--- NOTE | 2021-01-09 12:25 | RAD ---
Procedure: Fistulogram, BALANCE BRIDGE ASSEMBLER of in-stent stenosis, Central venous BALANCE BRIDGE ASSEMBLER Clinical Indication: High venous pressures of AVF Anesthesia: Local with moderate sedation. Continuous cardiopulmonary monitoring was preformed by inde pendent qualified nursing personnel. Please refer to the medical record for exact doses of medications utilized to achieve moderate sedati on. Conscious sedation was administered for 58 minutes. Contrast: 80 cc of Visipaque Fluoroscopy time: 6.2 minutes Complications: None Consent: The procedure was explained in its entirety to the patient or the patients designated repre sentative by a member of the treatment team, including a discussion of the risks, benefits and common ly accepted alternatives to the procedure, as well as the expected consequences of no therapy whatsoe meghan. Discussion of the risks included, but was not limited to, those that are most frequent and those that are rare but possibly severe or life-threatening, as well as the possibility of unforeseen comp lications. All questions were answered and informed consent was obtained. Sterility: All elements of maximal sterile barrier technique including the use of a cap, mask, steril e gown, sterile gloves, large sterile sheet, appropriate hand hygiene, and 2% chlorhexidine for cutan eous antisepsis (or acceptable alternative antiseptic per current guidelines) were followed for this procedure. Patient was placed in the supine position. The left arm was prepped and draped in appropriate sterile fashion. A timeout was performed. Initial ultrasound of the left arm fistula demonstrated a patent, compressible fissure with areas of aneurysmal dilatation. The arterial anastomosis appeared widely patent. Under direct ultrasound acces s to the fistula was obtained with a micropuncture needle. The needle was exchanged for a 4 Haitian co axial dilator. Fistulogram was performed. The access was then upsized to a 7 Haitian short sheath over an 035 wire. In conjunction with a Bernst ein catheter, a glide advantage wire was navigated to the inferior vena cava. A 10 mm high-pressure a ngioplasty balloon was placed across the in-stent stenosis of the cephalic arch stent and prolonged a ngioplasty was performed. Repeat fistulogram demonstrated near complete resolution of the stenosis. N ext a 14 Haitian high-pressure angioplasty balloon was placed at the central venous stenosis near the junction of the superior vena cava and right atrium. At low-pressure a waist was seen and documented. This was resolved with a prolonged inflation. The balloon was removed and repeat fistulogram through the sheath was performed. Hemostasis was achieved using manual compression. Excellent hemostasis was achieved. Sterile dressing s were applied. Findings: Initial fistulogram demonstrates repeat in-stent stenosis of the short stent at the central cephalic vein. This was resolved after 10 mm angioplasty. A second, central stenosis was also identified at th e central SVC. This was resolved after 14 mm angioplasty. Impression: 1. Initial fistulogram with recurrent in-stent stenosis of the central cephalic vein and stenosis of the central SVC. 2. Successful treatment with balloon angioplasty. Plan: Left arm fistula is ok to use for dialysis. Electronically signed by: Carl Pink (01/09/2021 12:23 PM) [id number]
--- NOTE | 2021-01-09 12:38 | NUR ---
pt A&O. pt does not speak Mosotho, she has a converter supervisor/electromagnet crane operator with her .dressing on left upper arm fistula access site is clean and dry. VSS. tolerating po well. d/c instructions reviewed and questions answered. out to vehicle per w/c - converter supervisor to drive her home
== END | disposition home or self-care (01) ==
LOC: INTRAD 08:14
PROVIDERS: ATTEND Internal Medicine Nephrology
DX: I12.0 Hypertensive chronic kidney disease with stage 5 chronic kidney disease or end stage renal disease (principal); N18.6 End stage renal disease; F32.9 Major depressive disorder, single episode, unspecified; Z99.2 Dependence on renal dialysis; Z90.49 Acquired absence of other specified parts of digestive tract; Z98.890 Other specified postprocedural states; Z79.899 Other long term (current) drug therapy; Z79.82 Long term (current) use of aspirin; Z88.8 Allergy status to other drugs, medicaments and biological substances
CPT/HCPCS: 36415; 36902; 36907; 76937; 85025; 85610; 99152; 99153; C1725; C1885; C1892; C1894; J1644; J2250; J3010; J3490; Q9967